=== PATIENT | female | born 1940 | race Caucasian/White ===

== ENCOUNTER → 2016-07-03 | Day surgery (SDC) | payer OTHER ==
[2016-06-04 11:15] VITALS: Ht 161.9 cm; Wt 62.7 kg
[~2016-07-03] VITALS: Ht 161.9 cm; Wt 62.7 kg
[~2016-07-03] MED LIST: 500ML BSS 0.3ML EPI 1:1000PF IRRIG ONE; ACETAMINOPHEN 325 MG TAB PO PRN; AMVISC PLUS 0.8ML SYRINGE INT OCU ONE; ASPI-232 PO; AcetaZOLAMIDE 250 MG TAB PO SCH; BETAXOLOL HCL 0.25% OP SUSP PER DROP CHARGE OPR SCH; BRIMONIDINE TART 0.2% OP SOLN PER DROP CHARGE ONE; BSS FLUSH ONE; CALC-310 PO; CALC-354 PO; ENDOCOAT 0.85ML SYRINGE INT OCU ONE; EpINEphrine INJ 1MG/ML AMP 1 MG/ML AMP ONE; HYDR25TA4 PO; LACTATED RINGER'S 1000ML 500 ML IV SCH; LEVO88TA3 PO; LIDOCAINE 4% OP SOLN DROP CHARGE ONE; LIDOCAINE 4% OP SOLN DROP CHARGE OPR SCH; LIDOCAINE HCL 1% MPF 2 ML VIAL ONE; LISI-729 PO; MIDAZOLAM HCL 1 MG/ML 2ML VIAL ONE; MIX: 4ML BSS 1ML EPI 1:1000 PF INSTIL ONE; MOXIFLOXACIN OPH SOLN PER DROP CHARGE ONE; MULT-506 PO; OCUCOAT 1 ML SOLN IO ONE; PHEN200C PO; PHEN300C PO; POTA20TA16 PO; POVIDONE-IODINE OP SOLN 30 ML BTL ONE; PRMVC TOP; PROPARACAINE 0.5% OP SOLN PER DROP CHARGE OPR SCH; TOBRAMYCIN/DEXAMETHASONE OPH OINT PER APPLN CHARGE ONE
--- NOTE | 2016-07-03 10:06 | History & Physical Bridge - [place] ---
H&P Re-Evaluation Bridge Note: I have examined the patient, reviewed the History & Physical and in the interval since the performance of the History & Physical I have noted the following changes of clinical significance: No changes noted
[2016-07-03] MEDS: PHENYLEPHRINE HCL 2.5% OP SOLN PER DROP CHARGE OPR SCH ×2 (11:23→11:28)
[2016-07-03] MEDS: TROPICAMIDE 1% OP SOLN PER DROP CHARGE OPR SCH ×2 (11:24→11:29)
[2016-07-03] MEDS: CYCLOPENTOLATE HCL 1% OP SOLN PER DROP CHARGE OPR SCH ×2 (11:25→11:30)
[2016-07-03] MEDS: MOXIFLOXACIN OPH SOLN PER DROP CHARGE OPR SCH ×2 (11:26→11:36)
--- NOTE | 2016-07-03 12:02 | Discharge Instructions-SurgCtr ---
Discharge Instructions Date of Service Jul 03, 2016. Visit Reason for Visit: Cataract Right Eye Discharge Discharge Diagnosis / Problem: lens implant right eye Discharge Goals Goal(s): Improve function Activity Recommendations Activity Limitations: resume your previous activity Lifting Limitations: no more than 10 pounds Exercise/Sports Limitations: gradually increase as tolerated May Resume Sexual Activity: when tolerated Shower/Bathe: tomorrow Driving or Machine Use: resume 1 day after discharge Anesthesia . Post Anesthesia Instructions: If you have had General Anesthesia or IV Sedation: * Do not drive today. * Resume driving when surgeon permits. * Do not make important decisions or sign legal documents today. * Call surgeon for: 1. Temperature elevations greater than 101 degrees F. 2. Uncontrollable pain. 3. Excessive bleeding. 4. Persistent nausea and vomiting. 5. Medication intolerance (nausea, vomiting or rash). * For nausea and vomiting use only clear liquids such as: tea, soda, bouillon until nausea subsides, then gradually increase diet as tolerated. * If you have any concerns or questions, call your surgeon's office. If physician is unavailable and it is an emergency, call 911 or go to the nearest emergency room. . Instructions / Follow-Up Instructions / Follow-Up ACTIVITY RECOMMENDATIONS: * Light activities. * Mild irritation and blurred vision are common for the first few days. * You may walk outside, read, watch television. * Redness around the white part of the eye is common. MEDICATIONS: Resume previous medications unless instructed otherwise by your surgeon. * Take white Diamox (Acetazolamide) tablet at 3 pm today. Start all eye drops at 3 pm today: * Eye drops (today and tomorrow): Prednisone - one drop in operative eye every 3 hours while awake Tobramycin - one drop in operative eye every 3 hours while awake SPECIAL CARE INSTRUCTIONS: * Tape plastic shield over eye to sleep at night. Call your doctor at with any concerns or problems. FOLLOW UP VISIT: Follow-up with Dr Gr at [facility] as scheduled. Diet Recommendations Home Diet: no limitations Procedures Procedures Performed: cataract extraction with lens implant Pending Studies Studies pending at discharge: no Medical Emergencies . Who to Call and When: Medical Emergencies: If at any time you feel your situation is an emergency, please call 911 immediately. . Non-Emergent Contact Non-Emergency issues call your: Dry Lumber Grader Call Non-Emergent contact if: your pain is not controlled [phone] . . "Provider Documentation" section prepared by Andrew Gr. .
--- NOTE | 2016-07-03 12:04 | [facility] Operative Report ---
Operative Report Date of Service Jul 03, 2016. Operative Report 1. PREOPERATIVE DIAGNOSIS: Senile Posterior Subcapsular cataract, right eye. 2. POSTOPERATIVE DIAGNOSIS: Senile Posterior Subcapsular cataract, right eye. 3. PROCEDURE: Phacoemulsification of right cataract with posterior chamber lens implant, type Bausch & Lomb, model MI60L, power +19.0 diopters. ANESTHESIA: Local standby. SURGEON: Dr. Gr. COMPLICATIONS: None. OPERATING TIME: 10 minutes. 4. OPERATION AND FINDINGS: DESCRIPTION OF PROCEDURE: The right pupil was dilated. The anesthetic was administered using a topical technique. The right eye was prepped and draped. A speculum was placed. A clear corneal incision was formed. The chamber was filled with Amvisc Plus and Endocoat. Epinephrine solution was used. A paracentesis was placed. A capsulorrhexis was performed. The nucleus was hydrodissected. The lens was removed with phacoemulsification. Time was 2.50 seconds. The aspiration unit was used to remove the cortex. The capsule was filled with Amvisc Plus. The lens implant was folded and placed into the capsule. The incision was hydrated. The Amvisc was aspirated. The wound was secure. The chamber was deep. The pupil was round. TobraDex ointment and Vigamox solution were placed. The speculum was removed. The patient was returned to the Recovery Room in stable condition. I attest to the content of the Intraoperative Record and any orders documented therein. Any exceptions are noted below. The scribe's documentation has been prepared in my presence, under my direction and personally reviewed by me in its entirety. I confirm that the note above accurately reflects all work, treatment, procedures, and medical decision making performed by me. I personally scribed for Andrew Gr M.D. ([email or web address]) on 07/03/16 at 12:04. Electronically submitted by Faith Lezama ([email or web address]).
[2016-07-03 12:07] VITALS: TEMP 36.6
--- NOTE | 2016-07-03 12:20 | Anesthesia Progress Nt - [facility] ---
Anesthesia Post Op Note Date & Time Jul 03, 2016 at 12:19 Vital Signs Pain Intensity: 0 Vital Signs Past 12 Hours Date Time Temp Pulse Resp B/P Pulse Ox O2 Delivery O2 Flow Rate FiO2 07/03/16 12:07 36.6 64 16 153/86 100 Room Air 07/03/16 11:15 36.7 78 16 158/90 98 Room Air Notes Mental Status: alert / awake / arousable, participated in evaluation Pt Amnestic to Procedure: No (recall as expected) Nausea / Vomiting: adequately controlled Pain: adequately controlled Airway Patency, RR, SpO2: stable & adequate BP & HR: stable & adequate Hydration State: stable & adequate Anesthetic Complications: no major complications apparent Pt doing well.
[2016-07-03 12:27] VITALS: BP 139/83; PULSE 71; O2SAT 97
== END | disposition home or self-care (01) ==
LOC: X.SURG 11:06
PROVIDERS: ATTEND Specialist
DX: H26.8 Other specified cataract (principal); Z68.24 Body mass index [BMI] 24.0-24.9, adult; Z98.890 Other specified postprocedural states

== ENCOUNTER → 2016-09-25 | Day surgery (SDC) | payer OTHER ==
[2016-09-13 14:39] VITALS: Ht 161.9 cm; Wt 62.7 kg
[~2016-09-25] VITALS: Ht 161.9 cm; Wt 62.7 kg
[~2016-09-25] MED LIST changes: +ATROPINE SULFATE 0.1 MG/ML 5ML SYR IV PRN; +BETAXOLOL HCL 0.25% OP SUSP PER DROP CHARGE OPL SCH; -BETAXOLOL HCL 0.25% OP SUSP PER DROP CHARGE OPR SCH; +EpHEDrine SULFATE INJ 50 MG/ML AMP IV PRN; +LIDOCAINE 4% OP SOLN DROP CHARGE OPL SCH; -LIDOCAINE 4% OP SOLN DROP CHARGE OPR SCH; +NURSING VERBAL MED ORDER ONE; +PROPARACAINE 0.5% OP SOLN PER DROP CHARGE OPL SCH; -PROPARACAINE 0.5% OP SOLN PER DROP CHARGE OPR SCH
[2016-09-25] MEDS: PHENYLEPHRINE HCL 2.5% OP SOLN PER DROP CHARGE OPL SCH ×2 (10:31→10:36)
[2016-09-25] MEDS: TROPICAMIDE 1% OP SOLN PER DROP CHARGE OPL SCH ×2 (10:32→10:37)
[2016-09-25] MEDS: CYCLOPENTOLATE HCL 1% OP SOLN PER DROP CHARGE OPL SCH ×2 (10:33→10:38)
[2016-09-25] MEDS: MOXIFLOXACIN OPH SOLN PER DROP CHARGE OPL SCH ×2 (10:34→10:49)
--- NOTE | 2016-09-25 11:43 | Discharge Instructions-SurgCtr ---
Discharge Instructions Date of Service Sep 25, 2016. Visit Reason for Visit: Cataract Left Eye Discharge Discharge Diagnosis / Problem: Pseudophakia left eye Discharge Goals Goal(s): Improve function Activity Recommendations Activity Limitations: per Instructions/Follow-up section Lifting Limitations: no more than 10 pounds Exercise/Sports Limitations: as tolerated May Resume Sexual Activity: when tolerated Shower/Bathe: tomorrow Driving or Machine Use: resume 1 day after discharge As noted Anesthesia . Post Anesthesia Instructions: If you have had General Anesthesia or IV Sedation: * Do not drive today. * Resume driving when surgeon permits. * Do not make important decisions or sign legal documents today. * Call surgeon for: 1. Temperature elevations greater than 101 degrees F. 2. Uncontrollable pain. 3. Excessive bleeding. 4. Persistent nausea and vomiting. 5. Medication intolerance (nausea, vomiting or rash). * For nausea and vomiting use only clear liquids such as: tea, soda, bouillon until nausea subsides, then gradually increase diet as tolerated. * If you have any concerns or questions, call your surgeon's office. If physician is unavailable and it is an emergency, call 911 or go to the nearest emergency room. . Instructions / Follow-Up Instructions / Follow-Up ACTIVITY RECOMMENDATIONS: * Light activities. * Mild irritation and blurred vision are common for the first few days. * You may walk outside, read, watch television. * Redness around the white part of the eye is common. MEDICATIONS: Resume previous medications unless instructed otherwise by your surgeon. * Take white Diamox (Acetazolamide) tablet at 3 pm today. Start all eye drops at 3 pm today: * Eye drops (today and tomorrow): Prednisone - one drop in operative eye every 3 hours while awake Tobramycin - one drop in operative eye every 3 hours while awake SPECIAL CARE INSTRUCTIONS: * Tape plastic shield over eye to sleep at night. Call your doctor at with any concerns or problems. FOLLOW UP VISIT: Follow-up with Dr Gr at [facility] as scheduled. Diet Recommendations Home Diet: resume previous diet Pending Studies Studies pending at discharge: no Medical Emergencies . Who to Call and When: Medical Emergencies: If at any time you feel your situation is an emergency, please call 911 immediately. . Non-Emergent Contact Non-Emergency issues call your: African History Professor . . "Provider Documentation" section prepared by Andrew Gr. .
--- NOTE | 2016-09-25 11:44 | [facility] Post Operative Brief Note ---
Immediate Operative Summary Operative Date Sep 25, 2016. Pre-Operative Diagnosis Cataract Left Eye Post-Operative Diagnosis Same Procedure(s) Performed Left Cataract Phacoemulsification With Intraocular Lens Implant Surgeon Dr. Gr Certified Court/Medical Interpreter Surgeon(s) None Estimated Blood Loss 0 Findings Nuclear cataract Fluids (cc crystalloids) 300 ml Specimens None Drains none Anesthesia L/S Complication(s) None Disposition Recovery Room / PACU
--- NOTE | 2016-09-25 11:45 | [facility] Operative Report ---
Operative Report Date of Service Sep 25, 2016. Operative Report PREOPERATIVE DIAGNOSIS: Senile nuclear cataract left eye. POSTOPERATIVE DIAGNOSIS: Senile nuclear cataract left eye. PROCEDURE: Phacoemulsification of left cataract with posterior chamber lens implant, type Bausch & Lomb, model MI60L, power + 19.00 Diopters. ANESTHESIA: Local standby. SURGEON: Dr. Gr. COMPLICATIONS: None. OPERATING TIME: 8 minutes. OPERATION AND FINDINGS: PROCEDURE: The left pupil was dilated. The anesthetic was administered using a topical technique. The left eye was prepped and draped. A speculum was placed. A clear corneal incision was formed. The chamber was filled with Amvisc Plus and endocoat. A paracentesis was placed. A capsulorrhexis was performed. The nucleus was hydrodissected. The lens was removed with phacoemulsification. Time was 3.26 seconds. The aspiration unit was used to remove the cortex. The capsule was filled with Amvisc Plus. The lens implant was folded and placed into the capsule. The incision was hydrated. The Amvisc was aspirated. The wound was secure. The chamber was deep. The pupil was round. Alphagan solution and TobraDex ointment and Zymar solution were placed. The speculum was removed. DISPOSITION: The patient was returned to the recovery room in stable condition I attest to the content of the Intraoperative Record and any orders documented therein. Any exceptions are noted below.
[2016-09-25 11:46] VITALS: TEMP 36.9
[2016-09-25 12:04] VITALS: BP 154/90; PULSE 65; O2SAT 96
--- NOTE | 2016-09-25 12:09 | Anesthesia Progress Nt - [facility] ---
Anesthesia Post Op Note Date & Time Sep 25, 2016 at 12:08 Vital Signs Pain Intensity: 1 Vital Signs Past 12 Hours Date Time Temp Pulse Resp B/P (MAP) Pulse Ox O2 Delivery O2 Flow Rate FiO2 09/25/16 12:04 65 16 154/90 (111) 96 Room Air 09/25/16 11:46 36.9 65 16 147/84 (105) 96 Room Air 09/25/16 10:22 36.8 69 20 158/95 (116) 97 Room Air Notes Mental Status: alert / awake / arousable, participated in evaluation Pt Amnestic to Procedure: Yes Nausea / Vomiting: adequately controlled Pain: adequately controlled Airway Patency, RR, SpO2: stable & adequate BP & HR: stable & adequate Hydration State: stable & adequate Anesthetic Complications: no major complications apparent
== END | disposition home or self-care (01) ==
LOC: X.SURG 09:06
PROVIDERS: ATTEND Specialist
DX: H25.12 Age-related nuclear cataract, left eye (principal); I10 Essential (primary) hypertension; E03.9 Hypothyroidism, unspecified; E78.5 Hyperlipidemia, unspecified; R56.9 Unspecified convulsions; Z79.82 Long term (current) use of aspirin; Z90.89 Acquired absence of other organs; Z90.710 Acquired absence of both cervix and uterus; Z87.891 Personal history of nicotine dependence

== ENCOUNTER 2018-07-25 11:19 | Inpatient (IN) ==
[2018-07-25 11:51] LABS: Hematocrit (blood only) 44.8 % (37-47); Hemoglobin 16.3 g/dL (12.0-16.0); Mean Corpuscular Hgb Conc 36.4 g/dL (32-36); Mean Corpuscular Volume 93.9 fL (80-100); Platelet Count 255 K/uL (130-400); RDW Standard Deviation 44.9 fL (36.4-46.3); Red Blood Count 4.77 M/uL (4.2-5.4)
[2018-07-25 11:58] LABS: Albumin Level 4.2 gm/dl (3.4-5.0); BUN Creatinine Ratio 21.5 (10-20); Calcium 9.2 mg/dl (8.5-10.1); Creatinine Clr Calc Pharmacy 55.8 ml/min; Est GFR (African American) 85.6; Est GFR (Non-African American) 73.8; Potassium 3.6 mmol/L (3.5-5.1)
--- NOTE | 2018-07-25 11:58 | CT Scan Report ---
HEAD CT NONCONTRAST CT DOSE: 537.48 mGy.cm HISTORY: Slurred speech. stroke symptoms TECHNIQUE: Multiaxial CT images of the head were performed without the use of intravenous contrast. A utomated exposure control was utilized for this study. A dose lowering technique was utilized adheri ng to the principles of ALARA. Comparison: Head CT 04/29/2006. Findings: The paranasal sinuses and mastoid air cells are clear. The calvarium and skull base are int act. There is no mass, hematoma, midline shift, acute infarct. White matter hypodensity is nonspecifi c but suggestive of microvascular ischemic change. The ventricles and sulci demonstrate mild age-rela venecia involutional changes. 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 Impression: No acute intracranial abnormality. Atrophy and microvascular ischemic changes. Old small lacunar infa rcts within the right cerebellar hemisphere. Electronically signed by: Liam Mayer M.D. 07/25/2018 11:57 AM
[2018-07-25 12:01] LABS: Albumin Globulin Ratio 1.2 (0.9-2); Bilirubin,Total 0.3 mg/dl (0.2-1); Globulin 3.6 gm/dl (2.5-4.0); Total Protein 7.8 gm/dl (6.4-8.2)
[2018-07-25] MEDS ORDERED: LABETALOL HCL IV 5 MG/ML 20ML IV STA ×2 (12:02→13:20)
[2018-07-25 12:14] LABS: Partial Thromboplastin Time 26.5 Seconds (21.0-31.0); Prothrombin Time 10.5 Seconds (9.0-12.0)
[2018-07-25] MEDS ORDERED: ICU PROTOCOL FOR HYPERGLYCEMIA PRN (13:17)
[2018-07-25] MEDS ORDERED: PHARMACIST DISCHARGE MED REC CONSULT PRN (13:20)
--- NOTE | 2018-07-25 13:39 | XRay Report ---
XR chest 1V portable HISTORY: Stroke symptoms. COMPARISON: None. FINDINGS: The lungs are clear. Cardiac silhouette is normal in size. No pleural effusions. No pneumot horax. IMPRESSION: No acute process. Electronically signed by: Liam Mayer M.D. 07/25/2018 1:37 PM
--- NOTE | 2018-07-25 13:40 | History & Physical Report ---
Date of Service July 25, 2018 Assessment & Plan (1) Dysarthria: (2) Hypertensive emergency: This is a 78-year-old female who has a significant past medical history of HTN, hypothyroidism, seizure disorder, senile osteoporosis who presents to [facility] secondary to dysarthria that began at approximately 8 AM. In ED symptoms mostly resolved except she did exhibit mild/minimal dysarthria, her neuro exam was otherwise unremarkable. Patient was significantly hypertensive with BP 225/136 on arrival and upon my examination was 228/126. She did receive labetalol 10 mg IV with improvement to 186/94 but then rebounded. Her lab work was significant for sodium 135, BUN 17, creatinine 0.78, glucose 104, total cholesterol 234, triglyceride 254, LDL 103, HDL 80. Head CT was negative for hemorrhage but did reveal old small lacunar infarcts in right cerebellar hemisphere. Chest x-ray was unremarkable. Patient likely experiencing hypertensive emergency therefore will be admitted to ICU. There is concern for questionable CVA given dysarthria/history and patient will undergo work-up to rule out stroke Admit to ICU Patient to be placed on Cardene drip for blood pressure management per neurology Consult neurology Obtain MRI of brain without contrast Obtain CTA of head and neck Obtain echocardiogram Fasting lipid panel already obtained Obtain A1c Please defer to security test engineer consultation for further treatment plan (3) Hypercholesteremia: Total cholesterol elevated at 234, trig 254, LDL 103, HDL 80 Will initiate patient on Lipitor 10 mg at bedtime until CVA work-up complete (4) Hypothyroidism: Continue Synthroid Check TSH (5) Seizure disorder: Continue Dilantin, last known seizure was 1983 (6) Senile osteoporosis: Continue Fosamax as outpatient (7) DVT prophylaxis: SCDS Disposition: to be determined, case management consulted Follow up: PCP Dr. Page upon discharge Patient was seen and examined in collaboration with Dr. De La Garza, please see addendum History of Present Illness Chief Complaint: Dysarthria since 8AM. Primary Care Provider: Cari Page MD This is a 78-year-old female who has a significant past medical history of HTN, hypothyroidism, seizure disorder, senile osteoporosis who presents to [facility] secondary to dysarthria that began at approximately 8 AM. Patient states she was going to her car repair appointment. At approximately 8 AM whenever she was talking to repair garage team she felt like she was having difficulty talking, "my tongue was in the way," she could not pronounce words. She could get words out but was having difficulty articulating them. She left the garage at approximately 8:30 AM and went home to rest. She decided to go to the bathroom and whenever she looked in the mirror she felt like she was experiencing slight left facial droop, "it is like my smile was not equal." She googled symptoms and she was concerned for stroke therefore she proceeded to seek ED. When getting in car she saw her neighbor and explained her symptoms. Her neighbor also felt that she was having difficulty articulating words. She has never had anything like this in the past. She denies any recent illness. She denies fever, chills, sweats, lightheadedness, dizziness, syncope, chest pain, shortness of breath, palpitations, cough, hemoptysis, nausea, vomiting, diarrhea, change in her bowel or urinary habits. Her appetite and weight has been stable. Patient states she monitors her blood pressure periodically. 2 da ys ago she was at a health screening in which her systolic blood pressure was 150s. About a week prior to that she was seen at her PCPs office and her systolic blood pressure was 118. She takes her medications regularly and took her hydrochlorothiazide this morning. 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 Events occurred in 1980 and 1983. She initially was treated with Dilantin and weaned off and developed additional episode of grand mal seizure in . She has then been on Dilantin ever since. Allergies Allergy/AdvReac Type Severity Reaction Status Date / Time cephalexin Allergy Severe RASH Verified 07/25/18 11:46 SWELLING OF EYE LIDS Penicillins Allergy Severe HIVES Verified 07/25/18 11:46 Home Medications Home Medications Medication Instructions Recorded Confirmed Type alendronate 70 mg PO WK 07/25/18 07/25/18 History aspirin [Aspirin Low Dose] 81 mg PO QPM 07/25/18 07/25/18 History calcium carbonate-vitamin D3 1 tab PO BID 07/25/18 07/25/18 History [Caltrate 600 + D] hydrochlorothiazide 25 mg PO QAM 07/25/18 07/25/18 History levothyroxine 88 mcg PO QAM 07/25/18 07/25/18 History lisinopril 5 mg PO HS 07/25/18 07/25/18 History multivitamin 1 tab PO DAILY 07/25/18 07/25/18 History phenytoin sodium extended 200 mg PO Q OTHER DAY 07/25/18 07/25/18 History phenytoin sodium extended 300 mg PO Q OTHER DAY 07/25/18 07/25/18 History [Dilantin Extended] potassium chloride [Klor-Con M20] 20 meq PO DAILY 07/25/18 07/25/18 History Past Med/Surg History Medical History HTN (hypertension) (Chronic) Hypothyroidism (Chronic) Senile osteoporosis (Chronic) Seizure disorder (Chronic) HTN (hypertension) (Chronic) Surgical History History of colonoscopy (Chronic) History of tonsillectomy and adenoidectomy (Chronic) History of total vaginal hysterectomy (Chronic) History of bladder repair surgery (Chronic) Family History Mother , 88 Stroke Father , 30s Accident at workplace, Onset Age: 30 [employer] Social History Preferred Language: Gabonese Communication Ability: Effective Beliefs That Will Affect Care: None marital status: / Current Living Situation: Alone current occupational status: retired Feels Safe at Home: Yes Smoking Status: Former smoker Hx Alcohol Use: Yes Hx Substance Use: No Review of Systems Review of Systems: As noted per HPI, 10 systems reviewed and negative unless noted above. Physical Exam Physical Exam: Gen: WD/WN, F, NAD, sitting up in bed, pleasant, conversing easily Head: Normocephalic, Atraumatic Eyes: Sclera normal, no conjunctival injection, PERRLA, EOMI, horizontal nystagmus noted bilaterally ENT: Gross hearing intact, normal pharynx, mucous membranes moist Neck: supple, no adenopathy, No JVD, no bruit, Resp: Clear to auscultation b/l, no wheeze, rales, rhonchi. Normal insp/exp effort, no accessory muscle use CV: Regular rate, regular rhythm, no murmur, rub, gallop, or ectopy Abd: +BS x 4, soft, nontender, nondistended Musculoskeletal: moves extremities active rom x 4, strength intact, good coding advisor strength Extremities: No edema bilaterally Skin: warm, moist, no rash, negative turgor, cap refill < 2sec Neuro: Alert and oriented x 3, speech normal minimal dysarthria, good mood/affect, cran nerve 2-12 intact grossly, [id number] intact, negative pronator drift, [id number] intact : deferred Results & Data Vital Signs (Past 12 Hours) Vital Signs Temp Pulse Pulse Resp BP BP Pulse Ox 07/25/18 13:34 74 16 228/126 H 07/25/18 12:30 72 21 99 07/25/18 12:15 77 21 183/103 H 97 07/25/18 12:13 79 13 96 07/25/18 12:12 79 12 186/94 H 96 07/25/18 12:01 86 15 98 07/25/18 12:00 91 H 19 226/118 H 97 07/25/18 11:54 90 26 H 231/144 H 07/25/18 11:40 94 H 22 227/157 H 07/25/18 11:37 94 H 23 98 07/25/18 11:35 95 H 16 237/145 H 99 07/25/18 11:22 36.5 C 109 H 18 225/136 H 99 Laboratory Results Short CBC 07/25/18 Range/Units 11:33 WBC 7.00 (4.8-10.8) K/uL Hgb 16.3 H (12.0-16.0) g/dL Hct 44.8 (37-47) % Plt Count 255 (130-400) K/uL BMP 07/25/18 11:33 Sodium 135 L Potassium 3.6 Chloride 100 Carbon Dioxide 29 BUN 17 Creatinine 0.78 Glucose 104 H Calcium 9.2 Liver Function 07/25/18 Range/Units 11:33 Total Bilirubin 0.3 (0.2-1) mg/dl AST 27 (15-37) U/L ALT 40 (12-78) U/L Alkaline Phosphatase 138 H (45-117) U/L Albumin 4.2 (3.4-5.0) gm/dl Diagnostic Findings CT Head: Impression: No acute intracranial abnormality. Atrophy and microvascular ischemic changes. 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 CXR: IMPRESSION: No acute process. Medications Administered Discontinued Medications Labetalol HCl (Normodyne) 10 mg IV NOW STA Stop: 07/25/18 12:03 Last Admin: 07/25/18 12:07 Dose: 10 mg Documented by: [id number] Cosigned by: [id number] Labetalol HCl (Normodyne) 10 mg IV NOW STA Stop: 07/25/18 13:21 Last Admin: 07/25/18 13:33 Dose: 10 mg Documented by: [id number] Cosigned by: [id number] ECG Rate (beats per minute): 96 Rhythm: normal sinus Code Status & VTE Plan Code Status Full code VTE Prophylaxis Plan VTE Prophylaxis will be ordered: Yes Supervising Physician Co-Signing Physician Notes I have seen and examined the patient with physician retail assistant manager and would like to comment in addition that Patient was in usual state of health up until 8 AM of 07/25/18 when she started speaking and noted problems with her speech and felt there might have be changes to her facial muscles. Patient presented to the ED and initial blood pressure recorded at 11:22 AM of blood pressure 225/136. Because of symptoms this would appear that patient had hypertensive emergency During the ED evaluation of the dysarthria and high blood pressure, patient did receive labetalol 20 mg IV which subsequently did bring down the blood pressure to systolic of 180s as documented at 12:12 PM. During that time patient had CT head which did not show intracranial bleed. ED order to admit was placed at 12:38PM. When Hospitalist medicine was asked to evaluate the patient, patient certainly was outside of the window for TPA which is recommended as per guidelines of 3 to 4.5 hours if suspected of stroke-like symptoms Hospitalist medicine service also noted that blood pressure returned to around systolic 225 and diastolic of 115. While patient seemed to have normal speech and no acute motor or sensory deficits (questionable whether there is new onset asymmetric facial muscles compared to patient's baseline prior to 8AM of 07/25/18), the Intensive care unit physician Dr. Felder was asked to accept the patient for further monitoring of the hypertensive emergency and rule out stroke workup. An addition labelol 20 mg IV was ordered. Hospitalist medicine team spoke with Neurology Dr. Dukes who recommended that patient should be started on nicardepine drip and try to titrate systolic blood pressure to between 160 to 180. Patient will be evaluated in the ICU and then have imaging studies neck and head CTA and brain MRI. Echocardiogram also to be pending. Patient does not appear to have seizure at this time but noted as per medical history to have had 2 seizures in the 1980s and patient has been taking phenytoin regularly. Likely patient should have phenytoin levels checked on this admission. Full Code status agree with physician retail assistant manager for other medical issues as documented, will appreciate further intensive care physician and neurology physician recommendations in furthering management of patient's care.
[2018-07-25 13:47] LABS: Chol HDL Ratio 3; Cholesterol 234 mg/dl (0-200); HDL Cholesterol 80 mg/dl; LDL Cholesterol Calculated 103 mg/dl; Triglycerides 254 mg/dl (0-150); VLDL Cholesterol 51 mg/dl
--- NOTE | 2018-07-25 13:57 | Neurology Consultation ---
Date of Consultation July 25, 2018 History of Present Illness Reason for Consultation: Dysarthria, Left Facial Droop Requesting Physician: Dr. Eyal De La Garza Attending Physician: Dr. Eyal De La Garza Assessment/plan: Transient left facial droop Dysarthria Hypertension Hx of Seizure A 78 year old woman with transient left facial droop and dysarthria secondary to left centrum semiovale ischemic lacunar infarct. Etiology likely small vessel due to chronic HTN. CTA head and neck negative for large vessel oclussion or high grade stenosis. MRI brain shows acute lacunar infract. NIHSS 0. - Recommend starting ASA 81 mg daily and Plavix 75 mg for 21-days, then ASA 81 mg daily indefintely - Recommend HIgh intensity statin, Liptior 40 mg daily - Recommend checking HA1c and Lipid panel - Permissive HTN for 24-hours with gradual reduction in blood pressures - TTE with shunt - Continue telemetry - Neuro checks, VS per ICU protocol - PT/OT/SS History of Present Illness A 78 year old woman admitted today for intermittent dysarthria and transient left facial droop. Patient was noted to have elevated blood pressures in the ED with systolic blood pressures greater than 220 mm Hg She has a history of hypertension and history of seizures currently on Dilantin. Last seizure was reported to be in 1983. Patient's blood pressures remain labile and patient was transferred to the intensive care nicardipine drip. Neurology was consulted due to concern for stroke. Remote history of smoking. She is on blood pressures medications at home. Does not take ASA regularly. Saw her left face drooping earlier. Now back to baseline. Allergies Allergy/AdvReac Type Severity Reaction Status Date / Time cephalexin Allergy Severe RASH Verified 07/25/18 11:46 SWELLING OF EYE LIDS Penicillins Allergy Severe HIVES Verified 07/25/18 11:46 Home Medications Home Medications Medication Instructions Recorded Confirmed Type alendronate 70 mg PO WK 07/25/18 07/25/18 History aspirin [Aspirin Low Dose] 81 mg PO QPM 07/25/18 07/25/18 History calcium carbonate-vitamin D3 1 tab PO BID 07/25/18 07/25/18 History [Caltrate 600 + D] hydrochlorothiazide 25 mg PO QAM 07/25/18 07/25/18 History levothyroxine 88 mcg PO QAM 07/25/18 07/25/18 History lisinopril 5 mg PO HS 07/25/18 07/25/18 History multivitamin 1 tab PO DAILY 07/25/18 07/25/18 History phenytoin sodium extended 200 mg PO Q OTHER DAY 07/25/18 07/25/18 History phenytoin sodium extended 300 mg PO Q OTHER DAY 07/25/18 07/25/18 History [Dilantin Extended] potassium chloride [Klor-Con M20] 20 meq PO DAILY 07/25/18 07/25/18 History Patient History Medical History HTN (hypertension) (Chronic) Hypothyroidism (Chronic) Senile osteoporosis (Chronic) Seizure disorder (Chronic) HTN (hypertension) (Chronic) Surgical History History of colonoscopy (Chronic) History of tonsillectomy and adenoidectomy (Chronic) History of total vaginal hysterectomy (Chronic) History of bladder repair surgery (Chronic) Family History Mother , 88 Stroke Father , 30s Accident at workplace, Onset Age: 30 [employer] Social History Preferred Language: Latvian Communication Ability: Effective Assembly Line Inspector Required: No Beliefs That Will Affect Care: None marital status: / Current Living Situation: Alone current occupational status: retired Other Information That Helps Us Care for You: No Feels Safe at Home: Yes Safety Concerns: Feels Safe At This Time Smoking Status: Former smoker Smoking End Date: 1969 Second Hand Exposure: Yes (not since 1969) Hx Alcohol Use: Yes Alcohol type: wine Hx Substance Use: No Physical Exam Physical Exam: EXAM: Constitutional: appearance normally developed, well nourished and non-obese Head and Face: normocephalic and atraumatic Eyes: normal lids, normal conjunctiva Neck: supple Respiratory: normal effort Cardiovascular: normal pulses Abdomen: non distended Skin: no rashes, lesions, or ulcers noted Psychiatric: normal judgement and insight, normal mood and normal affect NEUROLOGIC EXAMINATION: Appearance: no acute distress Orientation: awake, alert and oriented x 3 Mental Status: alert Memory: registration 3/3 and recall 3/3 Attention: normal Knowledge: appropriate Language: no aphasia Speech: no dysarthria Cranial Nerves: CN 2 - no visual defect on confrontation and pupils round, equal, reactive to light CN 3, 4, 6 - extra-ocular movements intact and no nystagmus CN 5 - facial sensation intact CN 7 - no facial asymmetry CN 8 - intact hearing CN 9, 10 - palate symmetric CN 11 - good shoulder shrug CN 12 - tongue midline Gait: deferred Coordination: no ataxia with finger to nose testing Sensory: intact and symmetric to light touch, no extinction Muscle Tone: normal Muscle exam: 5/5 througout, no drift in upper or lower extremities Reflexes: No clonus, toes down going Results & Data Vital Signs (Past 12 Hours) Vital Signs Temp Pulse Pulse Resp BP BP Pulse Ox 07/25/18 13:45 8 L 16 219/124 H 07/25/18 13:34 74 16 228/126 H 07/25/18 12:30 72 21 99 07/25/18 12:15 77 21 183/103 H 97 07/25/18 12:13 79 13 96 07/25/18 12:12 79 12 186/94 H 96 07/25/18 12:01 86 15 98 07/25/18 12:00 91 H 19 226/118 H 97 07/25/18 11:54 90 26 H 231/144 H 07/25/18 11:40 94 H 22 227/157 H 07/25/18 11:37 94 H 23 98 07/25/18 11:35 95 H 16 237/145 H 99 07/25/18 11:22 36.5 C 109 H 18 225/136 H 99
[2018-07-25 14:23] LABS: Troponin I < 0.015 ng/ml (0-0.045)
[2018-07-25 14:43] LABS: Estimated Average Glucose 105 mg/dl; Hemoglobin A1C 5.3 % (4.5-5.6)
--- NOTE | 2018-07-25 14:56 | Critical Care Consultation ---
Date of Consultation July 25, 2018 Assessment & Plan (1) Hypertensive emergency: Impression: 1. Hypertensive crisis, with neurologic symptoms, resolved neurologic symptoms with improvement in her blood pressure. 2. Hypercholesterolemia, with elevated cholesterol and triglycerides. 3. History of seizure disorder has been maintained on DPH. 4. History of hypothyroidism. Plan: 1. Blood pressure control to keep systolic blood pressure between 1 40-1 80. 2. I will start the patient on Lopressor given her multiple risk factors for vascular event. 25 mg p.o. twice daily. 3. Continue lisinopril and increase the dose from 5mg to 20 mg daily and will increase it as needed. 4. Aspirin 325 mg p.o. today and then 81 mg daily. 5. Continue Dilantin and levothyroxine. 6. DVT prophylaxis. 7. Neuro check every 4 hours. 8. Monitor in ICU. 9. Titrate nicardipine down to off. 10. Check a.m. labs. 12. Discussed with neurology Dr. Cantu, and with Dr. De La Garza, appreciate input. Discussed with the staff on rounds in details. Critical care time spent with the patient was 35 minutes. History of Present Illness Reason for Consultation: Hypertensive crisis Requesting Physician: Dr. De La Garza Attending Physician: Eyal De La Garza MD History of Present Illness Dear Dr. De La Garza: Thank you for the kind referral Mrs. Lema to critical care service. This is 78-year-old female with history of hypertension, seizure disorder, hypothyroidism, hypercholesterolemia, has been in her usual status of health, she has not had hospitalization since 2002, presented to the hospital after she noted slurred speech accompanied also with facial droop on the right side. The patient presented to the ED with blood pressure systolic of 220, the patient was given a dose of labetalol I brought it down to 185. The patient at that time was still having slurred speech, the patient underwent a CAT scan of the head which was unremarkable, admitted to the ICU with hypertensive crisis. The patient was out of the window for administering thrombolytics however her symptoms also resolved which exclude her from aggressive treatment for CVA. In the ICU, the patient was totally asymptomatic, denies any slurred speech, no focal weakness, no facial droop, no abnormal sensation, no paresthesia, no dizziness or diplopia, denies any dysphagia, dysarthria, and there is no dysphonia either. No focal weakness, the patient did not have focal symptoms whatsoever. She denies any headache, no hearing loss, no abnormal sensation in her mouth, no shortness of breath and no chest pain, no epigastric pain no abdominal pain no change in bowel movements or urine habits, no recent travel, and no recent illness. Family history does not contribute to her current illness, the patient is ex- smoker but quit in 1975, she smoked only for 2 years. She has secondhand smoking exposure via her but was unremarkable. Allergies Allergy/AdvReac Type Severity Reaction Status Date / Time cephalexin Allergy Severe RASH Verified 07/25/18 11:46 SWELLING OF EYE LIDS Penicillins Allergy Severe HIVES Verified 07/25/18 11:46 Home Medications Home Medications Medication Instructions Recorded Confirmed Type alendronate 70 mg PO WK 07/25/18 07/25/18 History aspirin [Aspirin Low Dose] 81 mg PO QPM 07/25/18 07/25/18 History calcium carbonate-vitamin D3 1 tab PO BID 07/25/18 07/25/18 History [Caltrate 600 + D] hydrochlorothiazide 25 mg PO QAM 07/25/18 07/25/18 History levothyroxine 88 mcg PO QAM 07/25/18 07/25/18 History lisinopril 5 mg PO HS 07/25/18 07/25/18 History multivitamin 1 tab PO DAILY 07/25/18 07/25/18 History phenytoin sodium extended 200 mg PO Q OTHER DAY 07/25/18 07/25/18 History phenytoin sodium extended 300 mg PO Q OTHER DAY 07/25/18 07/25/18 History [Dilantin Extended] potassium chloride [Klor-Con M20] 20 meq PO DAILY 07/25/18 07/25/18 History Patient History Medical History HTN (hypertension) (Chronic) Hypothyroidism (Chronic) Senile osteoporosis (Chronic) Seizure disorder (Chronic) HTN (hypertension) (Chronic) Surgical History History of colonoscopy (Chronic) History of tonsillectomy and adenoidectomy (Chronic) History of total vaginal hysterectomy (Chronic) History of bladder repair surgery (Chronic) Family History Mother , 88 Stroke Father , 30s Accident at workplace, Onset Age: 30 [address] mines Social History Preferred Language: Congolese Communication Ability: Effective Beliefs That Will Affect Care: None marital status: / Current Living Situation: Alone current occupational status: retired Feels Safe at Home: Yes Smoking Status: Former smoker Hx Alcohol Use: Yes Hx Substance Use: No Review of Systems Review of Systems: Review of system otherwise was unremarkable. Apart from was mentioned in the first section. Physical Exam Physical Exam: Vital signs were noted for blood pressure of 219/124, her heart rate is 92 normal sinus rhythm, no stridor, S1-S2 regular rate and rhythm, clear lung field, no edema in the periphery, neuro exam revealed 2-12 cranial nerves are intact, no focal weakness in the upper and lower extremities, no sensation loss, did not test for her gait. No slurred speech noted. Results & Data Vital Signs (Past 12 Hours) Vital Signs Temp Pulse Pulse Resp BP BP Pulse Ox 07/25/18 13:45 8 L 16 219/124 H 07/25/18 13:34 74 16 228/126 H 07/25/18 12:30 72 21 99 07/25/18 12:15 77 21 183/103 H 97 07/25/18 12:13 79 13 96 07/25/18 12:12 79 12 186/94 H 96 07/25/18 12:01 86 15 98 07/25/18 12:00 91 H 19 226/118 H 97 07/25/18 11:54 90 26 H 231/144 H 07/25/18 11:40 94 H 22 227/157 H 07/25/18 11:37 94 H 23 98 07/25/18 11:35 95 H 16 237/145 H 99 07/25/18 11:22 36.5 C 109 H 18 225/136 H 99 Laboratory Results Normal CBC, normal BMP, BUN/creatinine are normal, troponin is negative, high cholesterol and triglycerides were noted. Diagnostic Findings Showed old small lacunar infarct in the right cerebellar area. Otherwise age- related atrophy. Chest x-ray without any process.
[2018-07-25] MEDS ORDERED: ASPIRIN CHEW 324 MG PO STA (15:12)
[2018-07-25] MEDS ORDERED: LISINOPRIL 20 MG TAB PO SCH (15:15)
[2018-07-25] MEDS: METOPROLOL TARTRATE 25 MG TAB PO SCH (15:35)
--- NOTE | 2018-07-25 16:31 | Magnetic Resonance Report ---
MRI OF THE BRAIN WITHOUT CONTRAST CLINICAL HISTORY: Slurred speech. Evaluate for stroke. COMPARISON STUDY: Head CT July 25, 2018. TECHNIQUE: Utilizing a 1.5 Sarita magnet and dedicated coil, multiplanar, multiecho imaging of the bra in was performed without IV contrast. FINDINGS: Note is made of a 9 mm T2 hyperintense focus within the left centrum semiovale ovale which demonstrates restricted diffusion. This represents an acute infarct. No additional acute infarcts are present. Ventricular system is unremarkable. The basilar cisterns are patent. There are no extra-axi al collections. There are old lacunar infarcts within the bilateral cerebellar hemispheres. No intrac ranial masses identified on this unenhanced exam. A right maxillary sinus mucous retention cyst is no venecia. Calvarial signal is normal. Orbits are unremarkable. There is no fluid within the mastoid air ce lls. No evidence for acute sinusitis. Numerous white matter T2 hyperintense foci suggest small vessel disease. IMPRESSION: 1. Small acute infarct (9 mm) within the left centrum semiovale. No mass effect. No hemorrhage. 2. Multiple old lacunar infarcts and moderate small vessel disease. Electronically signed by: Pasha Armstrong M.D. 07/25/2018 4:30 PM
[2018-07-25] MEDS ORDERED: OPTIRAY 320 125ml IV PRN (16:32)
--- NOTE | 2018-07-25 16:43 | CT Scan Report ---
CTA ANGIOGRAPHY OF THE HEAD CLINICAL HISTORY: Slurred speech. Cerebrovascular accident. COMPARISON STUDY: Head CT and MRI of the brain performed earlier today. TECHNIQUE: Helical axial images of the head were obtained following uneventful intravenous administr ation of 121 cc of Optiray 320. Automated exposure control was utilized for the study. A dose lower ing technique was utilized adhering to the principles of ALARA. CT DOSE: 486.33 mGy.cm FINDINGS: Please note that the neck CTA will be reported separately. A mucous retention cyst within t he right maxillary sinus is incidentally noted. No acute intracranial hemorrhage, midline shift or ma ss effect is present. Brain volume is unremarkable. The ventricular system is normal. The basilar cis terns are patent. There are no extra-axial collections. Old lacunar infarcts within the bilateral cer ebellar hemispheres are better depicted on the MRI of the brain. The small acute infarct within the l eft centrum semiovale ovale on MRI the brain is shown on this exam due to technique. The bilateral M1 , M2, A1 and A2 segments are patent. There is mild plaque within bilateral cavernous carotids without stenosis. The posterior circulation is intact. There is no dissection. There is no intracranial aneu rysm. No abrupt vessel cut off is identified. IMPRESSION: Unremarkable CTA of the head. Mild atherosclerotic plaque within the bilateral cavernous carotids. No stenosis, thrombus, aneurysm or abrupt vessel cut off. Electronically signed by: Pasha Armstrong M.D. 07/25/2018 4:41 PM
--- NOTE | 2018-07-25 16:45 | CT Scan Report ---
CT ANGIOGRAPHY OF THE NECK WITH CONTRAST CLINICAL HISTORY: Slurred speech. Stroke. COMPARISON STUDY: No previous studies for comparison. Technique: CT angiography of the carotid and vertebral arteries was obtained using [employer] 320 IV and 3D reconstruction on an independent workstation. NASCET criteria was utilized. Automated exposure c ontrol was utilized for the study. A dose lowering technique was utilized adhering to the principles of ALARA. Findings: Lung apices are clear with the exception of mild biapical scarring. There is no cervical ly mphadenopathy. No mucosal lesion is identified although these may be occult by CT. There is no cervic al spine fracture. The major vasculature of the neck, including the bilateral common carotid, cervica l internal carotid and vertebral arteries are patent. There is mild atherosclerotic plaque within the proximal bilateral internal carotid arteries without stenosis. The left vertebral artery is dominant . There is no dissection. There is no aneurysm within the major vessels of the neck. IMPRESSION: Mild atherosclerotic plaque within the proximal bilateral internal carotid arteries without stenosis. No dissection. Unremarkable CTA of the neck for age. Electronically signed by: Pasha Armstrong M.D. 07/25/2018 4:43 PM
--- NOTE | 2018-07-25 17:04 | Emergency Department Note ---
Entered by Beverly Brantley acting as a scribe for Donald Araiza MD History of Present Illness General Chief complaint: Stroke/CVA Symptoms Stated complaint: SLURRED SPEECH, CAN'T WRITE WELL Source: patient and other (nursing staff) History of Present Illness Provider complaint: 1000 this morning Location: mouth Maximum Pain Intensity: 2 Quality: + other (stroke-like symptoms) Associated symptoms: + denies other symptoms (denies abdominal pain); no chest pain, no fever/chills and no shortness of breath The patient is a 78 year old female who presents to the Emergency Department with complaints of stroke symptoms occurring around 1000 this morning. She states that she had trouble talking while she was at the car shop and states that she feels like her tongue is "getting in the way." The patient states that she cannot pronounce things as clearly as usual. The patient states that she woke up at 0530 and did not notice any symptoms but she was not talking to anyone. She states she might of had the symptoms at that time but she would not of known. She denies having numbness or weakness on one side of the body. She states that she smiled in the mirror and reports that the left side of her face felt stronger. She denies having trouble ambulating. The patient does report having pressure in her head like a "tight band." The patient states that she did take her blood pressure medication this morning. She denies having fevers, chest pain, shortness of breath, and abdominal pain. The patient denies a history of strokes. The patient states that she takes 81 mg of Aspirin twice per week but is not on blood thinners. She states that she last had the baby aspirin 2 days ago. Per nursing staff, the patient "felt funny" at 0830. Nursing staff states that the patient drove to a car shop at 1000 and started to notice her symptoms more while talking to someone. Per nursing staff, the patient had trouble getting her words out and also reports having pressure in her head. Nursing staff states that the patient is hypertensive and takes Lisinopril and HCTZ for a history of hypertension. Home Medications Home Medications Medication Instructions Recorded Confirmed Type alendronate 70 mg PO WK 07/25/18 07/25/18 History aspirin [Aspirin Low Dose] 81 mg PO QPM 07/25/18 07/25/18 History calcium carbonate-vitamin D3 1 tab PO BID 07/25/18 07/25/18 History [Caltrate 600 + D] hydrochlorothiazide 25 mg PO QAM 07/25/18 07/25/18 History levothyroxine 88 mcg PO QAM 07/25/18 07/25/18 History lisinopril 5 mg PO HS 07/25/18 07/25/18 History multivitamin 1 tab PO DAILY 07/25/18 07/25/18 History phenytoin sodium extended 200 mg PO Q OTHER DAY 07/25/18 07/25/18 History phenytoin sodium extended 300 mg PO Q OTHER DAY 07/25/18 07/25/18 History [Dilantin Extended] potassium chloride [Klor-Con M20] 20 meq PO DAILY 07/25/18 07/25/18 History Allergies Allergy/AdvReac Type Severity Reaction Status Date / Time cephalexin Allergy Severe RASH Verified 07/25/18 11:46 SWELLING OF EYE LIDS Penicillins Allergy Severe HIVES Verified 07/25/18 11:46 Past Med/Surg History Medical History HTN (hypertension) (Chronic) Hypothyroidism (Chronic) Senile osteoporosis (Chronic) Seizure disorder (Chronic) HTN (hypertension) (Chronic) Surgical History History of colonoscopy (Chronic) History of tonsillectomy and adenoidectomy (Chronic) History of total vaginal hysterectomy (Chronic) History of bladder repair surgery (Chronic) Family History Mother , 88 Stroke Father , 30s Accident at workplace, Onset Age: 30 [employer] Social History Preferred Language: German Communication Ability: Effective Production Supervisor Off Shift Required: No Beliefs That Will Affect Care: None marital status: / Current Living Situation: Alone current occupational status: retired Other Information That Helps Us Care for You: No Feels Safe at Home: Yes Safety Concerns: Feels Safe At This Time Smoking Status: Former smoker Smoking End Date: 1969 Second Hand Exposure: Yes (not since 1969) Hx Alcohol Use: Yes Alcohol type: wine Hx Substance Use: No Review of Systems See HPI for pertinent positives & negatives. and A total of 10 systems reviewed and were otherwise negative Physical Exam Vital Signs Vital Signs - 24 hr 07/25/18 11:22 07/25/18 11:35 07/25/18 11:37 Temperature 36.5 C Temperature Source Oral Sepsis Recent Fever Within 48 Hours No Sepsis New/Unexplained Change in Mental Status No Sepsis Action Taken by Nursing No Action Required Pulse Rate 109 H 95 H 94 H Pulse Rate from SpO2 Sensor 94 H 95 H Respiratory Rate 18 16 23 Respiratory Effort / Characteristics Non-Labored Spontaneous Respiratory Depth Normal Blood Pressure 225/136 H 237/145 H Blood Pressure Mean 165 175 Blood Pressure Position Sitting Pulse Oximetry 99 99 98 Oxygen Delivery Method Room Air 07/25/18 11:40 07/25/18 11:54 07/25/18 12:00 Temperature Temperature Source Sepsis Recent Fever Within 48 Hours Sepsis New/Unexplained Change in Mental Status Sepsis Action Taken by Nursing Pulse Rate 94 H 90 91 H Pulse Rate from SpO2 Sensor 92 H Respiratory Rate 22 26 H 19 Respiratory Effort / Characteristics Respiratory Depth Blood Pressure 227/157 H 231/144 H 226/118 H Blood Pressure Mean 180 173 154 Blood Pressure Position Pulse Oximetry 97 Oxygen Delivery Method 07/25/18 12:01 07/25/18 12:12 07/25/18 12:13 Temperature Temperature Source Sepsis Recent Fever Within 48 Hours Sepsis New/Unexplained Change in Mental Status Sepsis Action Taken by Nursing Pulse Rate 86 79 79 Pulse Rate from SpO2 Sensor 86 79 78 Respiratory Rate 15 12 13 Respiratory Effort / Characteristics Respiratory Depth Blood Pressure 186/94 H Blood Pressure Mean 124 Blood Pressure Position Pulse Oximetry 98 96 96 Oxygen Delivery Method 07/25/18 12:15 07/25/18 12:30 Temperature Temperature Source Sepsis Recent Fever Within 48 Hours Sepsis New/Unexplained Change in Mental Status Sepsis Action Taken by Nursing Pulse Rate 77 72 Pulse Rate from SpO2 Sensor 76 73 Respiratory Rate 21 21 Respiratory Effort / Characteristics Respiratory Depth Blood Pressure 183/103 H Blood Pressure Mean 129 Blood Pressure Position Pulse Oximetry 97 99 Oxygen Delivery Method Constitutional: Vital signs reviewed. Eyes: Pupils are equal round reactive to light. Conjunctiva are noninjected. ENT: Pharynx is clear without erythema or exudate. Mucous membranes are moist. Neck supple without meningeal signs. Respiratory: Clear to auscultation bilaterally. Breath sounds are equal bilaterally. Cardiovascular: Regular rate and rhythm. No rubs or gallops. GI: Soft, nondistended and nontender. Bowel sounds are present. Musculoskeletal: No peripheral edema. No lower extremity tenderness. Integumentary: No cyanosis. Neurological: The patient is awake and alert. Cranial nerves II-XII are intact. Motor is 5 out of 5 all extremities. Sensation is intact to light touch all extremities. Slight problem with articulation but otherwise normal speech. No speech slurring. No pronator drift. No limb ataxia. Psychiatric: Normal affect. Course 1151: The patient was evaluated in room A2. A history and physical were performed. 1237: The patient's speech seems better but is not back to baseline. Her blood pressure has improved. 1238: I discussed the patient's case with Dayana Greenberg. She will evaluate the patient for further management. Consultations Consultation #1: Dayana Greenberg Time: 12:38 Administered Medications Nicardipine HCl 25 mg/ Sodium (Chloride) 250 mls @ 0 mls/hr IV .Q0M [facility]; Protocol Stop: 08/24/18 14:29 Last Titration: 07/25/18 15:35 Dose: 0 mg/hr, 0 mls/hr Documented by: [id number] Admin: 07/25/18 14:30 Dose: 5 mg/hr, 50 mls/hr Documented by: [id number] Cosigned by: [id number] Ioversol (Optiray 320 125ml) 121 ml IV ONCE PRN PRN Reason: Interaction Checking Stop: 07/29/18 16:31 Last Admin: 07/25/18 16:33 Dose: 121 ml Documented by: [id number] Metoprolol Tartrate (Lopressor) 25 mg PO BID [facility] Stop: 08/24/18 20:59 Last Admin: 07/25/18 15:35 Dose: 25 mg Documented by: [id number] Discontinued Medications Labetalol HCl (Normodyne) 10 mg IV NOW STA Stop: 07/25/18 12:03 Last Admin: 07/25/18 12:07 Dose: 10 mg Documented by: [id number] Cosigned by: [id number] Labetalol HCl (Normodyne) 10 mg IV NOW STA Stop: 07/25/18 13:21 Last Admin: 07/25/18 13:33 Dose: 10 mg Documented by: [id number] Cosigned by: [id number] Lisinopril (Zestril) 20 mg PO DAILY [place] Stop: 08/24/18 15:14 Last Admin: 07/25/18 15:30 Dose: 20 mg Documented by: [id number] Medical Decision Making Differential Diagnosis Differentials include stroke, TIA, intracranial mass, ICH, and hypertensive emergency. Medical Records Attestation: I reviewed the patient's medical records. I did perform a limited focused review of portions of the patient's old chart on the electronic medical record. The patient had a negative CT scan in 2006. Home Medications Current Medication List: was personally reviewed by me Laboratory Data Attestation: I reviewed the patient's lab results. Result diagrams: 07/25/18 11:33 07/25/18 11:33 Lab Results 07/25/18 07/25/18 07/25/18 Range/Units 11:33 11:33 11:33 WBC 7.00 (4.8-10.8) K/uL RBC 4.77 (4.2-5.4) M/uL Hgb 16.3 H (12.0-16.0) g/dL Hct 44.8 (37-47) % MCV 93.9 (80-100) fL MCH 34.2 H (25-34) pg MCHC 36.4 H (32-36) g/dL RDW Std Deviation 44.9 (36.4-46.3) fL RDW Coeff of Abdiel 13.0 (11.5-14.5) % Plt Count 255 (130-400) K/uL MPV 9.0 (7.4-10.4) fL PT 10.5 (9.0-12.0) Seconds INR 1.0 (0.9-1.1) APTT 26.5 (21.0-31.0) Seconds PTT Ratio 1.0 Sodium 135 L (136-145) mmol/L Potassium 3.6 (3.5-5.1) mmol/L Chloride 100 (98-107) mmol/L Carbon Dioxide 29 (21-32) mmol/L Anion Gap 7.0 (3-11) BUN 17 (7-18) mg/dl Creatinine 0.78 (0.6-1.2) mg/dl Est Cr Clr Drug Dosing 55.8 ml/min Est GFR ( Amer) 85.6 Est GFR (Non-Af Amer) 73.8 BUN/Creatinine Ratio 21.5 H (10-20) Glucose 104 H (70-99) mg/dl POC Glucose (70-99) Estimat Average Glucose mg/dl Hemoglobin A1c (4.5-5.6) % Calcium 9.2 (8.5-10.1) mg/dl Magnesium 2.0 (1.8-2.4) mg/dl Total Bilirubin 0.3 (0.2-1) mg/dl AST 27 (15-37) U/L ALT 40 (12-78) U/L Alkaline Phosphatase 138 H (45-117) U/L Troponin I (0-0.045) ng/ml Total Protein 7.8 (6.4-8.2) gm/dl Albumin 4.2 (3.4-5.0) gm/dl Globulin 3.6 (2.5-4.0) gm/dl Albumin/Globulin Ratio 1.2 (0.9-2) Triglycerides (0-150) mg/dl Cholesterol (0-200) mg/dl LDL Cholesterol, Calc mg/dl VLDL Cholesterol, Calc mg/dl HDL Cholesterol mg/dl Cholesterol/HDL Ratio TSH (0.300-4.500) uIu/ml 07/25/18 07/25/18 07/25/18 Range/Units 11:33 11:33 11:33 WBC (4.8-10.8) K/uL RBC (4.2-5.4) M/uL Hgb (12.0-16.0) g/dL Hct (37-47) % MCV (80-100) fL MCH (25-34) pg MCHC (32-36) g/dL RDW Std Deviation (36.4-46.3) fL RDW Coeff of Abdiel (11.5-14.5) % Plt Count (130-400) K/uL MPV (7.4-10.4) fL PT (9.0-12.0) Seconds INR (0.9-1.1) APTT (21.0-31.0) Seconds PTT Ratio Sodium (136-145) mmol/L Potassium (3.5-5.1) mmol/L Chloride (98-107) mmol/L Carbon Dioxide (21-32) mmol/L Anion Gap (3-11) BUN (7-18) mg/dl Creatinine (0.6-1.2) mg/dl Est Cr Clr Drug Dosing ml/min Est GFR ( Amer) Est GFR (Non-Af Amer) BUN/Creatinine Ratio (10-20) Glucose (70-99) mg/dl POC Glucose (70-99) Estimat Average Glucose 105 mg/dl Hemoglobin A1c 5.3 (4.5-5.6) % Calcium (8.5-10.1) mg/dl Magnesium (1.8-2.4) mg/dl Total Bilirubin (0.2-1) mg/dl AST (15-37) U/L ALT (12-78) U/L Alkaline Phosphatase (45-117) U/L Troponin I < 0.015 (0-0.045) ng/ml Total Protein (6.4-8.2) gm/dl Albumin (3.4-5.0) gm/dl Globulin (2.5-4.0) gm/dl Albumin/Globulin Ratio (0.9-2) Triglycerides 254 H (0-150) mg/dl Cholesterol 234 H (0-200) mg/dl LDL Cholesterol, Calc 103 mg/dl VLDL Cholesterol, Calc 51 mg/dl HDL Cholesterol 80 mg/dl Cholesterol/HDL Ratio 3 TSH 1.570 (0.300-4.500) uIu/ml 07/25/18 Range/Units 11:59 WBC (4.8-10.8) K/uL RBC (4.2-5.4) M/uL Hgb (12.0-16.0) g/dL Hct (37-47) % MCV (80-100) fL MCH (25-34) pg MCHC (32-36) g/dL RDW Std Deviation (36.4-46.3) fL RDW Coeff of Abdiel (11.5-14.5) % Plt Count (130-400) K/uL MPV (7.4-10.4) fL PT (9.0-12.0) Seconds INR (0.9-1.1) APTT (21.0-31.0) Seconds PTT Ratio Sodium (136-145) mmol/L Potassium (3.5-5.1) mmol/L Chloride (98-107) mmol/L Carbon Dioxide (21-32) mmol/L Anion Gap (3-11) BUN (7-18) mg/dl Creatinine (0.6-1.2) mg/dl Est Cr Clr Drug Dosing ml/min Est GFR ( Amer) Est GFR (Non-Af Amer) BUN/Creatinine Ratio (10-20) Glucose (70-99) mg/dl POC Glucose 101 H (70-99) Estimat Average Glucose mg/dl Hemoglobin A1c (4.5-5.6) % Calcium (8.5-10.1) mg/dl Magnesium (1.8-2.4) mg/dl Total Bilirubin (0.2-1) mg/dl AST (15-37) U/L ALT (12-78) U/L Alkaline Phosphatase (45-117) U/L Troponin I (0-0.045) ng/ml Total Protein (6.4-8.2) gm/dl Albumin (3.4-5.0) gm/dl Globulin (2.5-4.0) gm/dl Albumin/Globulin Ratio (0.9-2) Triglycerides (0-150) mg/dl Cholesterol (0-200) mg/dl LDL Cholesterol, Calc mg/dl VLDL Cholesterol, Calc mg/dl HDL Cholesterol mg/dl Cholesterol/HDL Ratio TSH (0.300-4.500) uIu/ml Imaging Data Radiologist's Impression: Radiology results as stated below per my review and the radiologist's interpretation: HEAD CT NONCONTRAST CT DOSE: 537.48 mGy.cm HISTORY: Slurred speech. stroke symptoms TECHNIQUE: Multiaxial CT images of the head were performed without the use of intravenous contrast. Automated exposure control was utilized for this study. A dose lowering technique was utilized adhering to the principles of ALARA. Comparison: Head CT 04/29/2006. Findings: The paranasal sinuses and mastoid air cells are clear. The calvarium and skull base are intact. There is no mass, hematoma, midline shift, acute infarct. White matter hypodensity is nonspecific but suggestive of microvascular ischemic change. The ventricles and sulci demonstrate mild age-related involutional changes. 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 Impression: No acute intracranial abnormality. Atrophy and microvascular ischemic changes. 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 Electronically signed by: Liam Mayer M.D. 07/25/2018 11:57 AM XR chest 1V portable HISTORY: Stroke symptoms. COMPARISON: None. FINDINGS: The lungs are clear. Cardiac silhouette is normal in size. No pleural effusions. No pneumothorax. IMPRESSION: No acute process. Electronically signed by: Liam Mayer M.D. 07/25/2018 1:37 PM ECG Data Attestation: I personally reviewed and interpreted this ECG as follows: Indication: other (stroke symptoms) Rate (beats per minute): 96 Rhythm: normal sinus Findings: no PVC and no ST elevation Blood Pressure Blood Pressure Findings: Elevated blood pressure Blood Pressure Disposition: Referred to patients primary care provider [facility] Narrative I did evaluate the patient as noted above. Patient is presenting with strokelike symptoms. She states she has dysarthria as well as noticed a facial droop at home on the right side. On my examination she has a NIH scale of 1. She is neurologically intact. I do not believe she is a TPA candidate given the mildness of her symptoms with seemingly rapid improvement as well as the lack of clarity as to the onset of symptoms. IV access was established. The patient was placed on a continuous site monitor. I did order and personally review the patient's 12-lead EKG as described above. There is no evidence of acute ischemia. I did order and personally reviewed the images of the patient's chest x-ray as described above. There is no pneumonia. I did order and review the patient's blood work as noted in the electronic medical record. She has mild hyponatremia. I did order a CT of the head. I did review the images myself as well as the radiology report as described above. There is no evidence of acute intracranial process. I did treat the patient with labetalol for her severely elevated hypertension. I did discuss the test results with her. She does state that she has some improvement but still has some difficulty with articulation of her words. She has no facial droop at this time. I did recommend hospitalization for further evaluation of her symptoms and control of her blood pressure. I did discuss case with the hospitalist and bottle caser. Impression & Plan Hypertensive emergency, Dysarthria, Facial droop Discharge Plan Visit Data *Final* Discharge Date/Time: 07/25/18 14:20 Chief Complaint: Stroke/CVA Symptoms Stated Complaint: SLURRED SPEECH, CAN'T WRITE WELL ED Provider: Donald Araiza Discharge Problem: Hypertensive emergency, Dysarthria, Facial droop Patient Disposition: Admitted As Inpatient Discharge Instructions Interventions: ED Discharge Assessment Last Done: 07/25/18 14:20 The scribe's documentation has been prepared under my direction and personally reviewed by me in its entirety. I confirm that the note above accurately reflects all work, treatment, procedures, and medical decision making performed by me.
[2018-07-25] MEDS: CLOPIDOGREL BISULFATE 75 MG TAB PO SCH (18:41)
[2018-07-25] MEDS ORDERED: PHENYTOIN SODIUM ER 100 MG CAP PO SCH (21:00)
[2018-07-25] MEDS: HEPARIN SOD 5,000 UNIT/0.5 ML VIAL SQ SCH (21:23)
[2018-07-26 04:52] LABS: Basophils # (auto) 0.03 K/uL (0-0.2); Basophils % (auto) 0.4 %; Eosinophils # (auto) 0.06 K/uL (0-0.5); Eosinophils % (auto) 0.8 %; Hematocrit (blood only) 41.7 % (37-47); Hemoglobin 15.2 g/dL (12.0-16.0); Immature Granulocytes # (auto) 0.02 K/uL (0.00-0.02); Immature Granulocytes % (auto) 0.3 %; Lymphocytes # (auto) 1.97 K/uL (1.2-3.4); Lymphocytes % (auto) 27.6 %; Mean Corpuscular Hgb Conc 36.5 g/dL (32-36); Mean Corpuscular Volume 92.9 fL (80-100); Monocytes # (auto) 0.59 K/uL (0.11-0.59); Monocytes % (auto) 8.3 %; Neutrophils # (auto) 4.48 K/uL (1.4-6.5); Neutrophils % (auto) 62.6 %; Platelet Count 244 K/uL (130-400); RDW Coefficient of Variation 13.3 % (11.5-14.5); RDW Standard Deviation 44.9 fL (36.4-46.3); Red Blood Count 4.49 M/uL (4.2-5.4); White Blood Count 7.15 K/uL (4.8-10.8)
[2018-07-26 05:12] LABS: BUN Creatinine Ratio 24.6 (10-20); Creatinine Clr Calc Pharmacy 47.5 ml/min; Est GFR (Non-African American) 64.7
[2018-07-26] MEDS: LEVOTHYROXINE SODIUM 88 MCG TABLET PO SCH (05:38)
[2018-07-26] MEDS ORDERED: PHENYTOIN SODIUM ER 100 MG CAP PO SCH ×2 (09:00→21:00)
[2018-07-26] MEDS ORDERED: ATORVASTATIN 10 MG TAB PO SCH (09:00)
[2018-07-26] MEDS: CLOPIDOGREL BISULFATE 75 MG TAB PO SCH (09:22)
[2018-07-26] MEDS: METOPROLOL TARTRATE 25 MG TAB PO SCH ×2 (09:22→21:07)
[2018-07-26] MEDS: HEPARIN SOD 5,000 UNIT/0.5 ML VIAL SQ SCH (09:22)
[2018-07-26] MEDS: ASPIRIN 81 MG ECTAB PO SCH (09:22)
[2018-07-26] MEDS: ATORVASTATIN 40 MG TAB PO SCH (09:23)
[2018-07-26] MEDS: LISINOPRIL 10 MG TAB PO SCH (09:23)
--- NOTE | 2018-07-26 10:24 | Critical Care Progress Note ---
Date of Service July 26, 2018 Assessment & Plan (1) Hypertensive emergency: Impression: 1. Hypertensive crisis, with neurologic symptoms, resolved neurologic symptoms with improvement in her blood pressure. 2. Hypercholesterolemia, with elevated cholesterol and triglycerides. 3. History of seizure disorder has been maintained on DPH. 4. TIA. Plan: 1. Blood pressure control to keep systolic blood pressure between 1 40-1 80. However, she responded to the treatment and her blood pressure currently 130 systolic. 2. Continue Lopressor 25 mg p.o. twice daily. 3. Continue lisinopril 10 mg p.o. daily. 4. Aspirin 81 mg and Plavix 75 mg p.o. daily. 5. Continue Dilantin and levothyroxine. 6. DVT prophylaxis. 7. We will check with neurology if they need repeated images. 8. Transfer to monitored bed. 9. Discontinue nicardipine. 10. Discussed with Dr. De La Garza. Discussed with the staff on rounds in details. Critical care time spent with the patient was 45 minutes. Subjective The patient started to have symptoms including numbness on the right side of her tongue as well as mild muscle weakness of her facial labial muscle. Blood pressure is well controlled. Denies any pain, no headache, no visual disturbances, no focal weakness otherwise. Review of Systems Review of Systems: Review of system otherwise was unremarkable, she has no dysphonia or dysarthria, she does not have slurred speech when I interviewed her. Physical Exam Physical Exam: Her vital signs are stable, S1-S2, distant breath sounds, abdomen is benign, no edema, neurologically she has weakness of the 5th and 7th cranial nerve on the right, otherwise she is 5 out of 5 x 4 extremities, no sensation or loss. Babinski downgoing toes. Maintained her reflexes. Good cough reflex. No dysphasia. Results & Data Vital Signs (Past 12 Hours) Vital Signs Temp Pulse Resp BP Pulse Ox 07/26/18 08:01 36.7 C 88 23 150/86 H 97 07/26/18 07:17 76 07/26/18 07:00 75 16 127/70 07/26/18 04:00 36.6 C 85 19 111/58 L 94 07/26/18 03:00 72 14 107/59 L 07/26/18 02:00 74 19 99/54 L 07/26/18 01:01 87 16 102/56 L 07/26/18 00:00 80 19 114/66 93 07/25/18 23:01 90 21 113/56 L Laboratory Results Labs were reviewed which showed stable CBC and BMP. Diagnostic Findings No new imaging. Awaiting echo report.
--- NOTE | 2018-07-26 10:50 | Neurology Progress Note ---
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 Etiology of stroke likely small vessel. CTA head and neck negative for any large vessel occlusion or sig nificant stenosis. Transthoracic echocardiogram showed a normal ejection fraction and no shunt. No cardiac source of embolism. Recommended to continue dual antiplatelet for 21 days and aspirin 81 mg daily indefinitely. Recommend high intensity statin. Blood pressure goal is normotension systolic blood pressure less than 140 diastolic blood pressure less than 90. Patient will need follow-up with neurology in 8 weeks. Okay to discharge from neuro standpoint when blood pressures have normalized. July 26, 2018 Subjective Patient was seen and examined. Reports waking this morning to dysarthria and right facial droop similar to symptoms she had yesterday. Denies any other symptoms or concerns. She did not sleep well. Physical Exam Physical Exam: EXAM: Constitutional: appearance normally developed, well nourished and non-obese Head and Face: normocephalic and atraumatic Eyes: normal lids, normal conjunctiva Neck: supple Respiratory: normal effort Cardiovascular: normal pulses Abdomen: non distended Skin: no rashes, lesions, or ulcers noted Psychiatric: normal judgement and insight, normal mood and normal affect NEUROLOGIC EXAMINATION: Appearance: no acute distress Orientation: awake, alert and oriented x 3 Mental Status: alert Memory: registration 3/3 and recall 3/3 Attention: normal Knowledge: appropriate Language: no aphasia Speech: mild dsyarthria Cranial Nerves: CN 2 - no visual defect on confrontation and pupils round, equal, reactive to light CN 3, 4, 6 - extra-ocular movements intact and no nystagmus CN 5 - facial sensation intact CN 7 - right facial droop , forehead is spared CN 8 - intact hearing CN 9, 10 - palate symmetric CN 11 - good shoulder shrug CN 12 - tongue midline Gait: deferred Coordination: no ataxia with finger to nose testing Sensory: intact to light touch Muscle Tone: normal Muscle exam: 5/5 throughout Reflexes: Ring Negative Results & Data Vital Signs (Past 12 Hours) Vital Signs Temp Pulse Resp BP Pulse Ox 07/26/18 08:01 36.7 C 88 23 150/86 H 97 07/26/18 07:17 76 07/26/18 07:00 75 16 127/70 07/26/18 04:00 36.6 C 85 19 111/58 L 94 07/26/18 03:00 72 14 107/59 L 07/26/18 02:00 74 19 99/54 L 07/26/18 01:01 87 16 102/56 L 07/26/18 00:00 80 19 114/66 93 07/25/18 23:01 90 21 113/56 L
--- NOTE | 2018-07-26 13:31 | Hospitalist Progress Note ---
Date of Service July 26, 2018 Assessment & Plan (1) Dysarthria: Acute stroke (cerebrovascular accident) -78-year-old woman admitted on 07/26/18 to the intensive car unit acute onset right facial droop and dysarthria secondary to acute lacunar infarct with hypertensive emergency -Brain MRI on 07/25/18 reveals Small acute infarct (9 mm) within the left centrum semiovale. No mass effect. No hemorrhage. and Multiple old lacunar infarcts and moderate small vessel disease -CTA head and neck negative for any large vessel occlusion or significant stenosis. Transthoracic echocardiogram showed a normal ejection fraction and no shunt. No cardiac source of embolism. -patient was given aspirin 324 mg in the ICU on 07/25/18 and was started on clopidogrel 75 mg daily -continue dual antiplatelet of clopidogrel and aspirin (changed to 81 mg daily by 07/26/18)for 21 days and then continue aspirin 81 mg daily indefinitely -continue atorvastatin 40 mg daily which was started on this admission -Blood pressure goal is normotension systolic blood pressure less than 140 diastolic blood pressure less than 90; blood pressure much better controlled after ICU intervention on 07/25/18 on nicardipine drip when labetalol was not efficacious; continue lisinopril 10 mg daily and metoprolol 25 mg BID as started by intensive care unit doctor on this admission -continue the physical and occupational and speech therapy evaluations while in the hospital - patient does not appear to have other motor deficits of upper or lower extremities and no choking during the swallowing -will transfer from ICU level of care to telemetry unit on 07/26/18 -Patient will need follow-up with neurology in 8 weeks (2) Hypertensive emergency: Hypertension -hypertensive emergency resolved -continue blood pressure management as above (3) Hypercholesteremia: -Total cholesterol elevated at 234, trig 254, LDL 103, HDL 80 -continue atorvastatin 40 mg daily which was started on this admission (4) Hypothyroidism: -TSH 1.57 -Continue Levoythroxine (5) Seizure disorder: History of seizures in the distant past - last known seizure was 1983 - on phenytoin at home - Continue home dose phenytoin - no seizure episode on this hospital admission so far (6) Senile osteoporosis: Continue Fosamax as outpatient (7) DVT prophylaxis: SCDS Subjective normal finger to nose test, patient is ambulatory without assistance, no motor deficits of extremities, facial droop of right side is more pronounced today, patent able to speak fluently, denies headache or problems with vision. discussed with neurologist about facial droop being more pronounced and neurologist advises to continue current treatment. denies chest pain or shortness of breath. denies abdominal pain. no problems with eating. no choking. no vomiting. no fever Physical Exam Constitutional: WD/WN, vitals as above Eyes: PERRL, conjunctivae normal, anicteric sclerae EOM intact bilaterally ENMT: external ear and nose normal, oropharynx normal Respiratory: normal respiratory effort, lungs clear to auscultation Cardiovascular: RRR, no murmur, no edema Gastrointestinal (Abdomen): normal bowel sounds, soft, nontender, no hepatosplenomegaly Musculoskeletal: no cyanosis or clubbing, extremities motor strength 5/5 Head/Neck/Chest: head atraumatic Neurologic: CN's II-XI intact bilaterally (right sided facial droop) normal finger to nose test, patient is ambulatory without assistance, no motor deficits of extremities, facial droop of right side is more pronounced today, patent able to speak fluently, denies headache or problems with vision. Psychiatric: A+Ox3, euthymic affect Results & Data Vital Signs (Past 12 Hours) Vital Signs Temp Pulse Resp BP Pulse Ox 07/26/18 12:01 36.6 C 79 20 147/81 H 98 07/26/18 11:44 75 19 144/96 H 07/26/18 11:00 78 24 159/105 H 07/26/18 10:01 86 24 129/59 L 07/26/18 09:00 86 16 135/73 07/26/18 08:01 36.7 C 88 23 150/86 H 97 07/26/18 07:17 76 07/26/18 07:00 75 16 127/70 07/26/18 04:00 36.6 C 85 19 111/58 L 94 07/26/18 03:00 72 14 107/59 L 07/26/18 02:00 74 19 99/54 L
[2018-07-27] MEDS: LEVOTHYROXINE SODIUM 88 MCG TABLET PO SCH (05:38)
[2018-07-27 06:59] LABS: Basophils # (auto) 0.02 K/uL (0-0.2); Basophils % (auto) 0.4 %; Eosinophils # (auto) 0.07 K/uL (0-0.5); Eosinophils % (auto) 1.5 %; Hemoglobin 15.7 g/dL (12.0-16.0); Immature Granulocytes # (auto) 0.01 K/uL (0.00-0.02); Immature Granulocytes % (auto) 0.2 %; Lymphocytes # (auto) 1.73 K/uL (1.2-3.4); Lymphocytes % (auto) 36.1 %; Mean Corpuscular Hgb Conc 36.5 g/dL (32-36); Mean Corpuscular Volume 92.7 fL (80-100); Mean Platelet Volume 9.1 fL (7.4-10.4); Monocytes # (auto) 0.54 K/uL (0.11-0.59); Monocytes % (auto) 11.3 %; Neutrophils # (auto) 2.42 K/uL (1.4-6.5); Neutrophils % (auto) 50.5 %; Platelet Count 200 K/uL (130-400); RDW Coefficient of Variation 13.3 % (11.5-14.5); RDW Standard Deviation 44.9 fL (36.4-46.3); Red Blood Count 4.64 M/uL (4.2-5.4); White Blood Count 4.79 K/uL (4.8-10.8)
[2018-07-27 07:41] LABS: BUN Creatinine Ratio 25.3 (10-20); Calcium 8.7 mg/dl (8.5-10.1); Creatinine Clr Calc Pharmacy 62.6 ml/min; Est GFR (African American) 99.5; Est GFR (Non-African American) 85.8
[2018-07-27] MEDS ORDERED: PHENYTOIN SODIUM ER 100 MG CAP PO SCH (09:00)
[2018-07-27] MEDS: CLOPIDOGREL BISULFATE 75 MG TAB PO SCH (09:05)
[2018-07-27] MEDS: ATORVASTATIN 40 MG TAB PO SCH (09:05)
[2018-07-27] MEDS: ASPIRIN 81 MG ECTAB PO SCH (09:05)
[2018-07-27] MEDS: LISINOPRIL 10 MG TAB PO SCH (09:05)
[2018-07-27] MEDS: METOPROLOL TARTRATE 25 MG TAB PO SCH (09:05)
[2018-07-27 11:46] VITALS: PULSE 68; TEMP 98.4; O2SAT 96
[2018-07-27] MEDS ORDERED: STROKE PATIENT DISCHARGE STA (13:11)
--- NOTE | 2018-07-27 13:12 | Hospitalist Progress Note ---
Date of Service July 27, 2018 Assessment & Plan (1) Dysarthria: Acute stroke (cerebrovascular accident) -78-year-old woman admitted on 07/26/18 to the intensive car unit acute onset right facial droop and dysarthria secondary to acute lacunar infarct with hypertensive emergency -Brain MRI on 07/25/18 reveals Small acute infarct (9 mm) within the left centrum semiovale. No mass effect. No hemorrhage. and Multiple old lacunar infarcts and moderate small vessel disease -CTA head and neck negative for any large vessel occlusion or significant stenosis. Transthoracic echocardiogram showed a normal ejection fraction and no shunt. No cardiac source of embolism. -patient was given aspirin 324 mg in the ICU on 07/25/18 and was started on clopidogrel 75 mg daily -continue dual antiplatelet of clopidogrel and aspirin (changed to 81 mg daily by 07/26/18)for 21 days and then continue aspirin 81 mg daily indefinitely -continue atorvastatin 40 mg daily which was started on this admission -Blood pressure goal is normotension systolic blood pressure less than 140 diastolic blood pressure less than 90; blood pressure much better controlled after ICU intervention on 07/25/18 on nicardipine drip when labetalol was not efficacious; continue lisinopril 10 mg daily and metoprolol 25 mg BID as started by intensive care unit doctor on this admission -continue the physical and occupational and speech therapy evaluations while in the hospital - patient does not appear to have other motor deficits of upper or lower extremities and no choking during the swallowing -will transfer from ICU level of care to telemetry unit on 07/26/18 07/27/18: Patient is discharged to home -Patient has prescription to continue speech and swallow therapy for dsysarthia. As per rehabilitation caseworker discussion with patient, patient may use the prescription and follow up with [facility] outpatient services -Patient should take lisinopril 10 mg daily and Patient should take metoprolol tartate 25 mg daily. Since this blood pressure control regimen has been able to keep patient's blood pressure after initial hypertensive emergency, patient should avoid hydrochlorothiazide until follow up with primary care doctor -Besides blood pressure control, patient should atorvastatin 40 mg daily Patient was started on clopidogrel and aspirin in the hospital on 07/25/18, and take take clopidogrel for 18 more days from discharge day, and continue aspirin 81 mg daily -neurology clinic follow up09/22/2018 10:20 AM Provider Jefe Dukes DO Department Neurology [facility] (2) Hypertensive emergency: Hypertension -hypertensive emergency resolved -continue blood pressure management as above (3) Hypercholesteremia: -Total cholesterol elevated at 234, trig 254, LDL 103, HDL 80 -continue atorvastatin 40 mg daily which was started on this admission (4) Hypothyroidism: -TSH 1.57 -Continue Levoythroxine (5) Seizure disorder: History of seizures in the distant past - last known seizure was 1983 - on phenytoin at home - Continue home dose phenytoin - no seizure episode on this hospital admission (6) Senile osteoporosis: Continue Fosamax as outpatient (7) DVT prophylaxis: SCDS, aspirin/clopidogrel Discharge diagnosis Dysarthria secondary to Acute stroke (cerebrovascular accident); Hypertensive emergency (resolved); Hypertension, Hypercholesteremia, History of Seizure disorder Patient is discharged to home Patient has prescription to continue speech and swallow therapy for dsysarthia. As per rehabilitation caseworker discussion with patient, patient may use the prescription and follow up with [facility] outpatient services Patient should take lisinopril 10 mg daily and Patient should take metoprolol tartate 25 mg daily. Since this blood pressure control regimen has been able to keep patient's blood pressure after initial hypertensive emergency, patient should avoid hydrochlorothiazide until follow up with primary care doctor Patient has primary care appointment 07/30/2018 1:00 PM Provider Mary Mota MD Department General Internal Medicine [facility] Patient has a previously established appointment 09/03/2018 10:00 AM Provider Shelly Ramesh PA-C Department Rheumatology [facility] Besides blood pressure control, patient should atorvastatin 40 mg daily Patient was started on clopidogrel and aspirin in the hospital on 07/25/18, and take take clopidogrel for 18 more days from discharge day, and continue aspirin 81 mg daily 09/22/2018 10:20 AM Provider Jefe Dukes DO Department Neurology [facility] Risk Factors for Stroke: You can reduce your chances of stroke by working with your medical provider to adopt a healthy lifestyle. Some specific ways to lower your chance of stroke are: * If you are a smoker, now is the time to stop smoking cigarettes * If you are diabetic, improve the control of your blood sugars * Avoid excessive amounts of alcohol * Control high blood pressure * Lose weight if you are overweight * Be sure to lead an active lifestyle * Eat a healthy diet low in salt, cholesterol and fat You should know about other risk factors for stroke that you are unable to contr ol. These include: * Age 55 years or older * Male gender * Certain racial groups: , or / * Family History of Stroke, Mini stroke or Heart Attack * Sickle Cell Disease Follow Up: It is important for you to keep your follow up appointments with your medical provider. Who to Call and When: Medical Emergencies: Call 911 immediately if you experience any of the following warning signs and symptoms of Stroke: * Sudden numbness or weakness of the face, arm or leg, especially on one side of the body * Sudden confusion, trouble speaking or understanding * Sudden trouble seeing in one or both eyes * Sudden trouble walking, dizziness, loss of balance or coordination * Sudden severe headache with no cause Do not delay calling 911 if you experience any warning signs or symptoms of a stroke. Delay in seeking medical attention may affect what treatments can be given to you. . Subjective Right sided facial droop compared to yesterday remains unchanged. patient eating and without choking. she reports sometimes she does bite the side of the mouth on the affected right side which is same as yesterday. patient speaking well today. no motor deficits of the extremities. no headache. no dizziness. no fever. no chest pain. no shortness of breath. we discussed discharge plans and follow ups Physical Exam Constitutional: WD/WN, vitals as above Eyes: PERRL, conjunctivae normal, anicteric sclerae EOM intact bilaterally ENMT: external ear and nose normal, oropharynx normal (right sided facial droop) Neck: trachea midline, no thyromegaly Respiratory: normal respiratory effort, lungs clear to auscultation Cardiovascular: RRR, no murmur, no edema Gastrointestinal (Abdomen): normal bowel sounds, soft, nontender, no hepatosplenomegaly Musculoskeletal: no cyanosis or clubbing, extremities motor strength 5/5 Head/Neck/Chest: head atraumatic Neurologic: CN's II-XI intact bilaterally (right sided facial droop) Psychiatric: A+Ox3, euthymic affect Results & Data Vital Signs (Past 12 Hours) Vital Signs Temp Pulse Pulse Resp BP BP Pulse Ox 07/27/18 11:45 36.9 C 68 20 131/90 96 07/27/18 09:18 65 07/27/18 07:44 36.8 C 79 18 156/89 H 97 07/27/18 04:19 36.3 C L 73 16 120/75 94 07/27/18 01:24 65
--- NOTE | 2018-07-27 13:19 | Discharge Summary ---
Date of Service July 27, 2018 Admission HPI Per Admitting Provider This is a 78-year-old female who has a significant past medical history of HTN, hypothyroidism, seizure disorder, senile osteoporosis who presents to [facility] secondary to dysarthria that began at approximately 8 AM. Patient states she was going to her car repair appointment. At approximately 8 AM whenever she was talking to repair garage team she felt like she was having difficulty talking, "my tongue was in the way," she could not pronounce words. She could get words out but was having difficulty articulating them. She left the garage at approximately 8:30 AM and went home to rest. She decided to go to the bathroom and whenever she looked in the mirror she felt like she was experiencing slight left facial droop, "it is like my smile was not equal." She googled symptoms and she was concerned for stroke therefore she proceeded to seek ED. When getting in car she saw her neighbor and explained her symptoms. Her neighbor also felt that she was having difficulty articulating words. She has never had anything like this in the past. She denies any recent illness. She denies fever, chills, sweats, lightheadedness, dizziness, syncope, chest pain, shortness of breath, palpitations, cough, hemoptysis, nausea, vomiting, diarrhea, change in her bowel or urinary habits. Her appetite and weight has been stable. Patient states she monitors her blood pressure periodically. 2 days ago she was at a health screening in which her systolic blood pressure was 150s. About a week prior to that she was seen at her PCPs office and her systolic blood pressure was 118. She takes her medications regularly and took her hydrochlorothiazide this morning. 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 Events occurred in 1980 and 1983. She initially was treated with Dilantin and weaned off and developed additional episode of grand mal seizure in . She has then been on Dilantin ever since. Admission Exam Per Admitting Provider Gen: WD/WN, F, NAD, sitting up in bed, pleasant, conversing easily Head: Normocephalic, Atraumatic Eyes: Sclera normal, no conjunctival injection, PERRLA, EOMI, horizontal nystagmus noted bilaterally ENT: Gross hearing intact, normal pharynx, mucous membranes moist Neck: supple, no adenopathy, No JVD, no bruit, Resp: Clear to auscultation b/l, no wheeze, rales, rhonchi. Normal insp/exp effort, no accessory muscle use CV: Regular rate, regular rhythm, no murmur, rub, gallop, or ectopy Abd: +BS x 4, soft, nontender, nondistended Musculoskeletal: moves extremities active rom x 4, strength intact, good financial underwriter strength Extremities: No edema bilaterally Skin: warm, moist, no rash, negative turgor, cap refill < 2sec Neuro: Alert and oriented x 3, speech normal minimal dysarthria, good mood/affect, cran nerve 2-12 intact grossly, [id number] intact, negative pronator drift, [id number] intact : deferred Principal Diagnosis Dysarthria secondary to Acute stroke (cerebrovascular accident); Hypertensive emergency (resolved); Hypertension, Hypercholesteremia, History of Seizure disorder Discharge Exam Constitutional WD/WN, vitals as above Eyes PERRL, conjunctivae normal, anicteric sclerae EOM intact bilaterally ENMT external ear and nose normal, oropharynx normal (right sided facial droop) Neck trachea midline, no thyromegaly Respiratory normal respiratory effort, lungs clear to auscultation Cardiovascular RRR, no murmur, no edema Gastrointestinal (Abdomen) normal bowel sounds, soft, nontender, no hepatosplenomegaly Musculoskeletal no cyanosis or clubbing, extremities motor strength 5/5 Head/Neck/Chest: head atraumatic Neurologic CN's II-XI intact bilaterally (right sided facial droop) Psychiatric A+Ox3, euthymic affect Discharge Data Allergies Allergy/AdvReac Type Severity Reaction Status Date / Time cephalexin Allergy Severe RASH Verified 07/25/18 11:46 SWELLING OF EYE LIDS Penicillins Allergy Severe HIVES Verified 07/25/18 11:46 Consultations 07/25/18 12:38 ED Decision to Admit Stat 07/25/18 13:18 Consult Case Management - Discharge Planning Routine 07/25/18 13:19 Consult Load Dispatcher Routine 07/25/18 13:20 Consult Case Management - Discharge Planning Routine Consult Neurology Routine Ordered Studies 07/25/18 11:42 CT head/brain wo con Stat 07/25/18 13:35 CT angio head w con Routine CT angio neck with con Routine MR brain wo con Routine Hospital Course (1) Dysarthria: Acute stroke (cerebrovascular accident) -78-year-old woman admitted on 07/26/18 to the intensive car unit acute onset right facial droop and dysarthria secondary to acute lacunar infarct with hypertensive emergency -Brain MRI on 07/25/18 reveals Small acute infarct (9 mm) within the left centrum semiovale. No mass effect. No hemorrhage. and Multiple old lacunar infarcts and moderate small vessel disease -CTA head and neck negative for any large vessel occlusion or significant stenosis. Transthoracic echocardiogram showed a normal ejection fraction and no shunt. No cardiac source of embolism. -patient was given aspirin 324 mg in the ICU on 07/25/18 and was started on clopidogrel 75 mg daily -continue dual antiplatelet of clopidogrel and aspirin (changed to 81 mg daily by 07/26/18)for 21 days and then continue aspirin 81 mg daily indefinitely -continue atorvastatin 40 mg daily which was started on this admission -Blood pressure goal is normotension systolic blood pressure less than 140 diastolic blood pressure less than 90; blood pressure much better controlled after ICU intervention on 07/25/18 on nicardipine drip when labetalol was not efficacious; continue lisinopril 10 mg daily and metoprolol 25 mg BID as started by intensive care unit doctor on this admission -continue the physical and occupational and speech therapy evaluations while in the hospital - patient does not appear to have other motor deficits of upper or lower extremities and no choking during the swallowing -will transfer from ICU level of care to telemetry unit on 07/26/18 07/27/18: Patient is discharged to home -Patient has prescription to continue speech and swallow therapy for dsysarthia. As per supervisor case loading discussion with patient, patient may use the prescription and follow up with [facility] outpatient services -Patient should take lisinopril 10 mg daily and Patient should take metoprolol tartate 25 mg daily. Since this blood pressure control regimen has been able to keep patient's blood pressure after initial hypertensive emergency, patient should avoid hydrochlorothiazide until follow up with primary care doctor -Besides blood pressure control, patient should atorvastatin 40 mg daily Patient was started on clopidogrel and aspirin in the hospital on 07/25/18, and take take clopidogrel for 18 more days from discharge day, and continue aspirin 81 mg daily -neurology clinic follow up09/22/2018 10:20 AM Provider Jefe Dukes DO Department Neurology [facility] (2) Hypertensive emergency: Hypertension -hypertensive emergency resolved -continue blood pressure management as above (3) Hypercholesteremia: -Total cholesterol elevated at 234, trig 254, LDL 103, HDL 80 -continue atorvastatin 40 mg daily which was started on this admission (4) Hypothyroidism: -TSH 1.57 -Continue Levoythroxine (5) Seizure disorder: History of seizures in the distant past - last known seizure was 1983 - on phenytoin at home - Continue home dose phenytoin - no seizure episode on this hospital admission (6) Senile osteoporosis: Continue Fosamax as outpatient (7) DVT prophylaxis: SCDS, aspirin/clopidogrel Discharge diagnosis Dysarthria secondary to Acute stroke (cerebrovascular accident); Hypertensive emergency (resolved); Hypertension, Hypercholesteremia, History of Seizure disorder Patient is discharged to home Patient has prescription to continue speech and swallow therapy for dsysarthia. As per supervisor case loading discussion with patient, patient may use the prescription and follow up with [facility] outpatient services Patient should take lisinopril 10 mg daily and Patient should take metoprolol tartate 25 mg daily. Since this blood pressure control regimen has been able to keep patient's blood pressure after initial hypertensive emergency, patient should avoid hydrochlorothiazide until follow up with primary care doctor Patient has primary care appointment 07/30/2018 1:00 PM Provider Mary Mota MD Department General Internal Medicine [facility] Patient has a previously established appointment 09/03/2018 10:00 AM Provider Shelly Ramesh PA-C Department Rheumatology [facility] Besides blood pressure control, patient should atorvastatin 40 mg daily Patient was started on clopidogrel and aspirin in the hospital on 07/25/18, and take take clopidogrel for 18 more days from discharge day, and continue aspirin 81 mg daily 09/22/2018 10:20 AM Provider Jefe Dukes DO Department Neurology [facility] Risk Factors for Stroke: You can reduce your chances of stroke by working with your medical provider to adopt a healthy lifestyle. Some specific ways to lower your chance of stroke are: * If you are a smoker, now is the time to stop smoking cigarettes * If you are diabetic, improve the control of your blood sugars * Avoid excessive amounts of alcohol * Control high blood pressure * Lose weight if you are overweight * Be sure to lead an active lifestyle * Eat a healthy diet low in salt, cholesterol and fat You should know about other risk factors for stroke that you are unable to control. These include: * Age 55 years or older * Male gender * Certain racial groups: , or / * Family History of Stroke, Mini stroke or Heart Attack * Sickle Cell Disease Follow Up: It is important for you to keep your follow up appointments with your medical provider. Who to Call and When: Medical Emergencies: Call 911 immediately if you experience any of the following warning signs and symptoms of Stroke: * Sudden numbness or weakness of the face, arm or leg, especially on one side of the body * Sudden confusion, trouble speaking or understanding * Sudden trouble seeing in one or both eyes * Sudden trouble walking, dizziness, loss of balance or coordination * Sudden severe headache with no cause Do not delay calling 911 if you experience any warning signs or symptoms of a stroke. Delay in seeking medical attention may affect what treatments can be given to you. . Total Time Total Time Spent Total Time Spent (In Minutes): 40 minutes Total Time Includes: Examination of the Patient, Discharge Planning, Medication Reconciliation and Communication With Other Providers Discharge Plan Discharge Items Patient Disposition: Home - Self-Care Reason For Visit: DYSARTHRIA, HYPERTENSIVE EMERGENCY Discharge Diagnosis: Dysarthria secondary to Acute stroke (cerebrovascular accident); Hypertensive emergency (resolved); Hypertension, Hypercholesteremia, History of Seizure disorder Condition: Good Discharge Goals: Improve disease control Activity: Resume your previous activity Non-emergency contact: Primary Care Provider and Neurologist Call non-emergency contact if: you have any medication questions Follow-up/Referrals: Cari Page MD [Primary Care Provider] - Diet: Heart Healthy and Low Sodium (2gm) Addtl Provider Instructions: Patient is discharged to home Patient has prescription to continue speech and swallow therapy for dsysarthia. As per supervisor case loading discussion with patient, patient may use the prescription and follow up with [facility] outpatient services Patient should take lisinopril 10 mg daily and Patient should take metoprolol tartate 25 mg daily. Since this blood pressure control regimen has been able to keep patient's blood pressure after initial hypertensive emergency, patient should avoid hydrochlorothiazide until follow up with primary care doctor Patient has primary care appointment 07/30/2018 1:00 PM Provider Mary Mota MD Department General Internal Medicine [facility] Patient has a previously established appointment 09/03/2018 10:00 AM Provider Shelly Ramesh PA-C Department Rheumatology [facility] Besides blood pressure control, patient should atorvastatin 40 mg daily Patient was started on clopidogrel and aspirin in the hospital on 07/25/18, and take take clopidogrel for 18 more days from discharge day, and continue aspirin 81 mg daily 09/22/2018 10:20 AM Provider Jefe Dukes DO Department Neurology [facility] Risk Factors for Stroke: You can reduce your chances of stroke by working with your medical provider to adopt a healthy lifestyle. Some specific ways to lower your chance of stroke are: * If you are a smoker, now is the time to stop smoking cigarettes * If you are diabetic, improve the control of your blood sugars * Avoid excessive amounts of alcohol * Control high blood pressure * Lose weight if you are overweight * Be sure to lead an active lifestyle * Eat a healthy diet low in salt, cholesterol and fat You should know about other risk factors for stroke that you are unable to control. These include: * Age 55 years or older * Male gender * Certain racial groups: , or / * Family History of Stroke, Mini stroke or Heart Attack * Sickle Cell Disease Follow Up: It is important for you to keep your follow up appointments with your medical provider. Who to Call and When: Medical Emergencies: Call 911 immediately if you experience any of the following warning signs and symptoms of Stroke: * Sudden numbness or weakness of the face, arm or leg, especially on one side of the body * Sudden confusion, trouble speaking or understanding * Sudden trouble seeing in one or both eyes * Sudden trouble walking, dizziness, loss of balance or coordination * Sudden severe headache with no cause Do not delay calling 911 if you experience any warning signs or symptoms of a stroke. Delay in seeking medical attention may affect what treatments can be given to you. . Prescriptions: New atorvastatin 40 mg Tablet 40 mg PO QAM 30 Days Qty: 30 RF: 0 clopidogrel 75 mg Tablet 75 mg PO QAM 18 Days Qty: 18 RF: 0 aspirin [Ecotrin Low Strength] 81 mg Tablet,Delayed Release (Dr/Ec) 81 mg PO DAILY 30 Days Qty: 30 RF: 0 lisinopril 10 mg Tablet 10 mg PO DAILY 30 Days Qty: 30 RF: 0 metoprolol tartrate 25 mg Tablet 25 mg PO BID 30 Days Qty: 60 RF: 0 Continued multivitamin Tablet 1 tab PO DAILY RF: 0 alendronate 70 mg tablet 70 mg PO WK RF: 0 phenytoin sodium extended [Dilantin Extended] 100 mg Capsule 300 mg PO Q OTHER DAY RF: 0 aspirin [Aspirin Low Dose] 81 mg Tablet,Delayed Release (Dr/Ec) 81 mg PO QPM RF: 0 levothyroxine 88 mcg tablet 88 mcg PO QAM RF: 0 Caltrate 600 + D 600 mg (1,500 mg)-800 unit Tablet,Chewable 1 tab PO BID RF: 0 phenytoin sodium extended 100 mg capsule 200 mg PO Q OTHER DAY RF: 0 Discontinued potassium chloride [Klor-Con M20] 20 mEq tablet,ER particles/crystals 20 meq PO DAILY RF: 0 lisinopril 5 mg Tablet 5 mg PO HS RF: 0 hydrochlorothiazide 25 mg tablet 25 mg PO QAM RF: 0 Stand-Alone Forms: [facility] Discharge Orders: Discharge Order (Routine); Ordered 07/27/18 Ordered By: Eyal De La Garza Admission Data Admit Date/Time: 07/25/18 13:18 Attending Provider: Eyal De La Garza Admit Provider: Eyal De La Garza Primary Care Provider: Cari Page Other Providers: Eyal De La Garza ; Guillaume Felder ; Jefe Dukes Service: Intensive Care Unit
[2018-07-27 13:57] VITALS: BP 156/89
--- NOTE | 2018-07-27 14:18 | Pharmacy Report ---
Pharmacist Stroke Counseling - Date of Service July 27, 2018 - Scope: Pharmacy has been consulted to provide medication discharge counseling for this patient admitted with ischemic stroke as per the Pharmacist Discharge Counseling for Stroke Patients Protocol. - Medications on Discharge: Home Medications Medication Instructions Recorded Confirmed Caltrate 600 + D 1 tab PO BID 07/25/18 07/25/18 alendronate 70 mg PO WK 07/25/18 07/25/18 aspirin [Aspirin Low Dose] 81 mg PO QPM 07/25/18 07/25/18 levothyroxine 88 mcg PO QAM 07/25/18 07/25/18 multivitamin 1 tab PO DAILY 07/25/18 07/25/18 phenytoin sodium extended 200 mg PO Q OTHER DAY 07/25/18 07/25/18 phenytoin sodium extended 300 mg PO Q OTHER DAY 07/25/18 07/25/18 [Dilantin Extended] New Rx's Medication Instructions Recorded aspirin [Ecotrin Low Strength] 81 mg PO DAILY 30 Days #30 tab 07/27/18 atorvastatin 40 mg PO QAM 30 Days #30 tab 07/27/18 clopidogrel 75 mg PO QAM 18 Days #18 tab 07/27/18 lisinopril 10 mg PO DAILY 30 Days #30 tab 07/27/18 metoprolol tartrate 25 mg PO BID 30 Days #60 tab 07/27/18 - Action: The above medications, specifically ones for stroke treatment/prophylaxis, have been reviewed in detail with the patient and/or patient field sales representative(s) prior to discharge. This includes indication, common adverse reactions, drug interactions, and medication administration. Medication counseling has been employed using the teach-back method to ensure understanding. - Outcome: The patient and/or patient field sales representative(s) have demonstrated understanding of the medications. Please note, they are aware that the pharmacist will call them within 72 hours post-discharge to confirm that the appropriate medications are being taken and answer any further medication related questions the patient might have at that time. Contact information Individual to be contacted: Zuleima Lema Relationship to patient (if applicable): n/a Phone number: , please leave a voicemail and a phone number. Pt by her own admission does not normally answer the phone unless she recognizes the phone number. I wrote down the hospital phone number but she would prefer we leave a voicemail so that she is able to call back. Best time to call: morning Additional comments: Discussed the need for DAPT and why it is indicated. She is aware that she will only be taking the plavix 75mg for 18 more days. Further, I counseled her on the lopresser 25mg BID and lisinopril 10mg (inc from 5mg). D/w pt that our RAAS is most active at night, there is a benefit to taking lisinopril at night. Pt is agreeable. She felt that her LDL@104 was not severely elevated. I d/w pt that the newest lipid guidelines recommend ldl <70mg/dL. I counseled her on the ADEs of statins. If she is intolerant to lipitor a switch to a less lipophilic statin is possible: crestor 20-40mg. TGs are >150mg/dL. Could trial with icosapent ethyl 2g BID. Will d/w primary team about potential benefits. Thank you for allowing pharmacy to be involved in the care of this patient. Please call [phone] or [phone] with any additional questions
--- NOTE | 2018-07-29 15:18 | Pharmacy Report ---
Pharmacist Post D/C Phone Note - Phone Note: Date of phone call: July 29, 2018. Individual with whom pharmacist spoke to: MUSA Mckenzie SAIGEManan The following questions were reviewed during the phone call with responses listed below each: Can you tell me the medications that you are currently taking as well as when and how you take each medication? -See Table Below When have you missed any doses of your medications? - none. organizes medications with pill box What side effects are you having from your medications, specifically, the new medications you were started on? - She sneezed one time and had just a little bit of a bloody nose, but she thought this could be allergies/dry nose. - She has been feeling "emotional" but she thinks it is just due to feeling overwhelmed and is feeling better What questions do you have about your medications? - none What problems are you having obtaining your medications? - none- [facility] but will f/u with PCP When is your next appointment with your primary care doctor? - 07/30/18 As per the Pharmacist Discharge Counseling for Stroke Patients Protocol, this phone call has been completed within 72 hours of discharge. Thank you for allowing us to be involved in the care of this patient. - Home Medications: Home Medications Medication Instructions Recorded Confirmed Caltrate 600 + D 1 tab PO BID 07/25/18 07/25/18 alendronate 70 mg PO WK 07/25/18 07/25/18 aspirin [Aspirin Low Dose] 81 mg PO QPM 07/25/18 07/25/18 levothyroxine 88 mcg PO QAM 07/25/18 07/25/18 multivitamin 1 tab PO DAILY 07/25/18 07/25/18 phenytoin sodium extended 200 mg PO Q OTHER DAY 07/25/18 07/25/18 phenytoin sodium extended 300 mg PO Q OTHER DAY 07/25/18 07/25/18 [Dilantin Extended] New Rx's Medication Instructions Recorded aspirin [Ecotrin Low Strength] 81 mg PO DAILY 30 Days #30 tab 07/27/18 atorvastatin 40 mg PO QAM 30 Days #30 tab 07/27/18 clopidogrel 75 mg PO QAM 18 Days #18 tab 07/27/18 lisinopril 10 mg PO DAILY 30 Days #30 tab 07/27/18 metoprolol tartrate 25 mg PO BID 30 Days #60 tab 07/27/18
== END 2018-07-27 16:28 | disposition home or self-care (01) | DRG 304 ==
LOC: ED 11:19 → 1E 13:18 → 2N 07-26 13:29

== ENCOUNTER 2022-08-16 14:50 | Observation (INO) ==
--- NOTE | 2022-08-16 16:37 | XRay Report ---
XR chest 1V not portable CLINICAL HISTORY: stroke alert TECHNIQUE: Single frontal radiograph of the chest was obtained. Comparison: Comparison is made to chest radiograph 05/27/2020 FINDINGS: No lines and tubes are seen. The cardiomediastinal silhouette is normal. The lungs are clear. No evid ence of pleural effusion or pneumothorax. IMPRESSION: No acute chest disease. ACT 112: Negative or not required by law. Electronically signed by: Manav Griffiths M.D. 08/16/2022 4:36 PM
--- NOTE | 2022-08-16 16:41 | CT Scan Report ---
CT SCAN OF THE BRAIN WITHOUT IV CONTRAST CLINICAL HISTORY: Neurological deficit. Stroke like symptoms. COMPARISON STUDY: CT of the brain dated 07/25/2018. MRI of the brain dated 07/25/2018. TECHNIQUE: Unenhanced axial CT scan of the brain is performed from the vertex to the skull base. A do se lowering technique was utilized adhering to the principles of ALARA. CT DOSE: 547.75 mGy.cm FINDINGS: Brain parenchyma: There is age-related involutional change noting moderate subcortical and periventri cular microangiopathic disease. There is no hemorrhage, mass effect, or evidence of acute territorial ischemia by CT criteria. Chronic lacunar infarcts are noted in both cerebellar hemispheres. Ambrocio-whi te matter differentiation is preserved. No extra-axial fluid collection is seen. Ventricles, sulci, cisterns: Prominent secondary to involutional change. Intracranial vasculature: There is atherosclerotic calcification of the cavernous carotid and vertebr al arteries. Calvarium: Unremarkable. Sinuses and mastoids: The visualized paranasal sinuses are clear. The mastoid air cells are well pneu matized. Orbits: The bony orbits are grossly intact. There are bilateral ocular lens implants. IMPRESSION: There is no hemorrhage, mass effect, or evidence of acute territorial ischemia by CT crit grabiel. ACT 112: Negative or not required by law. Electronically signed by: Walter Bonner M.D. 08/16/2022 4:39 PM
[2022-08-16] MEDS ORDERED: LABETALOL HCL IV 5 MG/ML 20ML IV STA (17:18)
--- NOTE | 2022-08-16 17:25 | Emergency Department Note ---
Impression & Plan BRAO (branch retinal artery occlusion), Hypertensive urgency ED Provider Note Provider: Tim Rubin MD DATE OF SERVICE: 08/16/2022 CHIEF COMPLAINT: Vision loss, referred, high blood pressure HISTORY OF PRESENT ILLNESS: Patient is a 82-year-old female history of CVA, hypertension, and seizure disorder on Dilantin chronically presenting here today referred from her eye doctor. States developed overnight vision loss in the right lower quadrants of her right eye vision field. Denies any significant eye or head pain. May be a bit of tightness last night in her neck but that is resolved. No trauma. Denies any numbness or weakness, dizziness, or speech issues otherwise. History of stroke by her report in 2019. Went to her eye doctors today due to the vision evaluation. History of cataract surgery. No other drops reported. They told her that she has a branch retinal artery oc clusion and noted her to be severely hypertensive and sent her here for evaluation. Patient is on a low-dose aspirin daily already. States compliance with home blood pressure medicine. They did do a dilated exam of her right eye. No seizures reported. PAST MEDICAL HISTORY: As noted above MEDICATIONS: Reviewed home medication list with her SOCIAL HISTORY: Non-smoker PHYSICAL EXAM: GENERAL: alert and oriented in no acute distress on stretcher Head: normocephalic and atraumatic EYES: No injection, discharge or icterus. Extraocular motions intact. 5 mm dilated right eye minimally reactive. Left eye 4 mm and reactive to light. NECK: Trachea midline. Supple. ENT: Mucous membranes pink and moist. LUNGS: Airway patent. No retractions. Breath sounds clear with good air entry bilaterally. HEART: Regular rate and rhythm. No chest wall tenderness ABDOMEN: Soft and non-tender, without guarding or rebound. SKIN: Acyanotic, warm, dry, without rashes EXTREMITIES: Without swelling, tenderness or deformity NEUROLOGICAL: Reports a bit of diminishment in the right lower visual quadrants with her right eye only. No aphasia. No facial droop or slurred speech. Normal strength and tone in the extremities. Sensation to gross touch normal. Ambulatory. EK bpm normal sinus rhythm. No PVC or PAC. No acute ST segment elevation or depression with a QTc of 420. CONTINUOUS CARDIAC MONITORING: was ordered and showed a heart rate of 70s-90s bpm in normal sinus rhythm Patient's laboratory studies and imaging reviewed. Differential includes Benign hypertension, hypertensive emergency, cardiovascular pathology, toxicologic, pheochromocytoma, electrolyte abnormality, renal disease, neurological/CVA, oncological/retinal detachment/CRAO/BRAO, as well as other pathologies. IMPRESSION/MEDICAL DECISION MAKING: No significant eye pain and doubt GCA or TCA specially with the report from the eye doctor that patient has a BRAO. Significantly hypertensive here. Given a bit of IV labetalol. Basic blood work obtained. Ordered cholesterol testing. CT of the head without acute findings per radiology. We will complete CT angiograms looking for medium or large vessel disease. May simply be small vessel disease. Basic labs will be obtained. No other significant neurological findings and doubt acute CVA. Obviously BRAO is indicative of significant vascular disease and discussed with her bring her in for blood pressure control and prevention for development of stroke/TIA. Blood pressure did improve here. CT angiograms without evidence of significant vascular abnormality notably. Discussed with her staying and discussed with the hospital staying for further evaluation. DIAGNOSIS: Right BRAO, hypertensive urgency DISPOSITION: Hospitalist will evaluate Patient was agreeable with this plan. Past Med/Surg History Medical History Cardiac murmur Elevated cholesterol COULD NOT TOLERATE LIPITOR HTN (hypertension) Hx of iron deficiency anemia A CHILD Hx of migraines Hypothyroidism Irregular heart beat DX ON HOLTER MONITOR (FOLLOWED BY DR. 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 Other No family history of adverse response to anesthesia Social History Smoking Status: Never smoker Second Hand Exposure: No; Do You Dip or Chew Tobacco: No; Hx Alcohol Use: Yes Alcohol type: wine Hx Substance Use: No Preferred Language: Thai Communication Ability: Effective Shelving Supervisor Required: No Beliefs That Will Affect Care: None marital status: / Current Living Situation: Alone current occupational status: retired Feels Safe at Home: Yes Assistive Devices: Glasses Allergies Allergies Allergy/AdvReac Type Severity Reaction Status Date / Time cephalexin Allergy Severe RASH Verified 07/20/21 12:08 SWELLING OF EYE LIDS Penicillins Allergy Severe HIVES Verified 07/20/21 12:08 Home Meds Home Medications Medication Instructions Recorded Confirmed aspirin 81 mg tablet,delayed 81 mg PO QPM 07/25/18 07/20/21 release (Lo Low Dose Aspirin) calcium carbonate 600 mg-vitamin 1 tab PO BID 07/25/18 07/20/21 D3 20 mcg (800 unit) chewable tablet (Caltrate 600 plus D) levothyroxine 88 mcg tablet 88 mcg PO QAM 07/25/18 07/20/21 multivitamin 1 tab PO DAILY 07/25/18 07/20/21 phenytoin sodium extended 100 mg 200 mg PO Q OTHER DAY 07/25/18 07/20/21 capsule phenytoin sodium extended 100 mg 300 mg PO Q OTHER DAY 07/25/18 07/20/21 capsule (Dilantin Extended) amlodipine 5 mg tablet 5 mg PO QAM 07/19/21 07/20/21 carvedilol 3.125 mg tablet 3.125 mg PO BID 07/19/21 07/20/21 hydrochlorothiazide 25 mg tablet 25 mg PO QAM 07/19/21 07/20/21 losartan 50 mg tablet 50 mg PO QAM 07/19/21 07/20/21 potassium chloride 10 mEq 10 meq PO BID 07/19/21 07/20/21 capsule,extended release Results & Data (ED) Vital Signs Vital Signs - 24 hr 08/16/22 15:04 08/16/22 17:05 08/16/22 17:05 Temperature 36.7 C Temperature Source Temporal Artery Scan Pulse Rate 97 H Pulse Rate [Apical] 99 H Pulse Rate from SpO2 Sensor Respiratory Rate 16 20 Respiratory Effort / Characteristics Non-Labored Spontaneous Respiratory Depth Normal Respiratory Pattern Regular Blood Pressure 217/140 H Blood Pressure [Right Arm] 220/117 H Blood Pressure Mean 165 Blood Pressure Mean [Right Arm] 151 Blood Pressure Position Sitting Pulse Oximetry 98 97 Oxygen Delivery Method Room Air Room Air Room Air Sepsis Recent Fever Within 48 Hours No Sepsis New/Unexplained Change in Mental Status No Sepsis Action Taken by Nursing No Action Required 08/16/22 17:15 08/16/22 17:15 08/16/22 17:30 Temperature Temperature Source Pulse Rate 90 Pulse Rate [Apical] Pulse Rate from SpO2 Sensor 88 Respiratory Rate 13 Respiratory Effort / Characteristics Respiratory Depth Respiratory Pattern Blood Pressure 218/129 H 208/110 H Blood Pressure [Right Arm] Blood Pressure Mean 157 154 Blood Pressure Mean [Right Arm] Blood Pressure Position Pulse Oximetry 97 Oxygen Delivery Method Room Air Sepsis Recent Fever Within 48 Hours Sepsis New/Unexplained Change in Mental Status Sepsis Action Taken by Nursing 08/16/22 17:30 08/16/22 17:03 08/16/22 17:59 Temperature Temperature Source Pulse Rate 90 91 H 75 Pulse Rate [Apical] Pulse Rate from SpO2 Sensor 83 76 Respiratory Rate 15 14 Respiratory Effort / Characteristics Respiratory Depth Respiratory Pattern Blood Pressure Blood Pressure [Right Arm] Blood Pressure Mean Blood Pressure Mean [Right Arm] Blood Pressure Position Pulse Oximetry 97 97 Oxygen Delivery Method Room Air Room Air Sepsis Recent Fever Within 48 Hours Sepsis New/Unexplained Change in Mental Status Sepsis Action Taken by Nursing 08/16/22 18:00 08/16/22 18:00 08/16/22 18:28 Temperature Temperature Source Pulse Rate 78 Pulse Rate [Apical] Pulse Rate from SpO2 Sensor 77 76 Respiratory Rate 14 Respiratory Effort / Characteristics Respiratory Depth Respiratory Pattern Blood Pressure 176/104 H Blood Pressure [Right Arm] Blood Pressure Mean 146 Blood Pressure Mean [Right Arm] Blood Pressure Position Pulse Oximetry 94 97 Oxygen Delivery Method Room Air Room Air Sepsis Recent Fever Within 48 Hours Sepsis New/Unexplained Change in Mental Status Sepsis Action Taken by Nursing 08/16/22 18:30 08/16/22 18:30 Temperature Temperature Source Pulse Rate 78 Pulse Rate [Apical] Pulse Rate from SpO2 Sensor 78 Respiratory Rate 16 Respiratory Effort / Characteristics Respiratory Depth Respiratory Pattern Blood Pressure 169/97 H Blood Pressure [Right Arm] Blood Pressure Mean 146 Blood Pressure Mean [Right Arm] Blood Pressure Position Pulse Oximetry 96 Oxygen Delivery Method Room Air Sepsis Recent Fever Within 48 Hours Sepsis New/Unexplained Change in Mental Status Sepsis Action Taken by Nursing Laboratory Data 08/16/22 15:10 08/16/22 15:10 Lab Results 08/16/22 08/16/22 08/16/22 Range/Units 15:10 15:10 15:10 WBC 7.49 (4.8-10.8) K/ul RBC 4.68 (4.20-5.40) M/uL Hgb 15.8 (12.0-16.0) g/dl Hct 44.6 (37.0-47.0) % MCV 95.3 (80.0-100.0) fL MCH 33.8 (25.0-34.0) pg MCHC 35.4 (32.0-36.0) g/dL RDW Std Deviation 44.5 (36.4-46.3) fL RDW Coeff of Abdiel 12.6 (11.5-14.5) % Plt Count 246 (130-400) K/uL MPV 9.2 L (9.4-12.4) fL PT Cancelled INR Cancelled APTT Cancelled PTT Ratio Cancelled Sodium 133 L (136-145) mmol/L Potassium 3.6 (3.5-5.1) mmol/L Chloride 95 L (98-107) mmol/L Carbon Dioxide 28 (21-32) mmol/L Anion Gap 10 (3-11) BUN 16 (6-23) mg/dl Creatinine 0.69 (0.6-1.2) mg/dl Est Cr Clr Drug Dosing 53.8 ml/min Est GFR ( Amer) 95.3 ml/min Est GFR (Non-Af Amer) 82.2 ml/min BUN/Creatinine Ratio 23.2 H (10-20) Glucose 105 H (70-99(Fasting)) mg/dl Calcium 9.8 (8.6-10.3) mg/dl Magnesium 1.8 (1.7-2.4) mg/dl Total Bilirubin 0.5 (0.2-1.0) mg/dl AST 32 (13-39) U/L ALT 29 (7-52) U/L Alkaline Phosphatase 100 (34-104) U/L Total Protein 7.6 (6.0-8.3) gm/dl Albumin 4.7 (3.4-5.0) gm/dl Globulin 2.9 (2.5-4.0) gm/dl Albumin/Globulin Ratio 1.6 (0.9-2) Triglycerides 155 H (0-150) mg/dl Cholesterol 208 H (0-200) mg/dl LDL Cholesterol Direct 106 mg/dl HDL Cholesterol 71 mg/dl SARS-CoV-2, RNA, NAAT (NEGATIVE) 08/16/22 08/16/22 Range/Units 17:30 18:32 WBC (4.8-10.8) K/ul RBC (4.20-5.40) M/uL Hgb (12.0-16.0) g/dl Hct (37.0-47.0) % MCV (80.0-100.0) fL MCH (25.0-34.0) pg MCHC (32.0-36.0) g/dL RDW Std Deviation (36.4-46.3) fL RDW Coeff of Abdiel (11.5-14.5) % Plt Count (130-400) K/uL MPV (9.4-12.4) fL PT 11.4 INR 1.0 APTT 28.4 PTT Ratio 1.0 Sodium (136-145) mmol/L Potassium (3.5-5.1) mmol/L Chloride (98-107) mmol/L Carbon Dioxide (21-32) mmol/L Anion Gap (3-11) BUN (6-23) mg/dl Creatinine (0.6-1.2) mg/dl Est Cr Clr Drug Dosing ml/min Est GFR ( Amer) ml/min Est GFR (Non-Af Amer) ml/min BUN/Creatinine Ratio (10-20) Glucose (70-99(Fasting)) mg/dl Calcium (8.6-10.3) mg/dl Magnesium (1.7-2.4) mg/dl Total Bilirubin (0.2-1.0) mg/dl AST (13-39) U/L ALT (7-52) U/L Alkaline Phosphatase (34-104) U/L Total Protein (6.0-8.3) gm/dl Albumin (3.4-5.0) gm/dl Globulin (2.5-4.0) gm/dl Albumin/Globulin Ratio (0.9-2) Triglycerides (0-150) mg/dl Cholesterol (0-200) mg/dl LDL Cholesterol Direct mg/dl HDL Cholesterol mg/dl SARS-CoV-2, RNA, NAAT NEGATIVE (NEGATIVE) Administered Medications Discontinued Medications Ioversol (Optiray 320 500ml) 109 ml IV ONCE ONE Stop: 08/16/22 18:15 Last Admin: 08/16/22 18:15 Dose: 109 ml Documented By: ALTA Labetalol HCl (Labetalol Hcl Iv 5 Mg/Ml 20ml) 10 mg IV NOW STA Stop: 08/16/22 17:19 Last Admin: 08/16/22 17:35 Dose: 10 mg Documented By: SKYLER Co-signed By: TBS Imaging Data Radiologist's Impression: Chest X-Ray 08/16/22 15:10 XR chest 1V not portable CLINICAL HISTORY: stroke alert TECHNIQUE: Single frontal radiograph of the chest was obtained. Comparison: Comparison is made to chest radiograph 05/27/2020 FINDINGS: No lines and tubes are seen. The cardiomediastinal silhouette is normal. The lungs are clear. No evidence of pleural effusion or pneumothorax. IMPRESSION: No acute chest disease. ACT 112: Negative or not required by law. Electronically signed by: Manav Griffiths M.D. 08/16/2022 4:[address] 08/16/22 15:10 CT SCAN OF THE BRAIN WITHOUT IV CONTRAST CLINICAL HISTORY: Neurological deficit. Stroke like symptoms. COMPARISON STUDY: CT of the brain dated 07/25/2018. MRI of the brain dated 07/25/2018. TECHNIQUE: Unenhanced axial CT scan of the brain is performed from the vertex to the skull base. A dose lowering technique was utilized adhering to the principles of ALARA. CT DOSE: 547.75 mGy.cm FINDINGS: Brain parenchyma: There is age-related involutional change noting moderate subcortical and periventricular microangiopathic disease. There is no hemorrhage, mass effect, or evidence of acute territorial ischemia by CT criteria. Chronic lacunar infarcts are noted in both cerebellar hemispheres. Ambrocio-white matter differentiation is preserved. No extra-axial fluid collection is seen. Ventricles, sulci, cisterns: Prominent secondary to involutional change. Intracranial vasculature: There is atherosclerotic calcification of the cavernous carotid and vertebral arteries. Calvarium: Unremarkable. Sinuses and mastoids: The visualized paranasal sinuses are clear. The mastoid air cells are well pneumatized. Orbits: The bony orbits are grossly intact. There are bilateral ocular lens implants. IMPRESSION: There is no hemorrhage, mass effect, or evidence of acute t erritorial ischemia by CT criteria. ACT 112: Negative or not required by law. Electronically signed by: Walter Bonner M.D. 08/16/2022 4:39 PM Head CTA 08/16/22 17:15 CT angio neck with con, CT angio head w con CLINICAL HISTORY: R vision loss TECHNIQUE: CT angiography of the head and neck was performed following intravenous administration of iodinated contrast. Coronal and sagittal MIPS were obtained from the axial data set and were submitted for review. Automated dose lowering techniques and/or adjustment according to patient size were utilized for this examination. All measurements were calculated based on NASCET criteria. CT DOSE: 393.06 mGy.cm Comparison: Comparison is made to CT neck 07/25/2018 FINDINGS: Lungs and soft tissues are unremarkable. CTA Neck: A 3 vessel aortic arch is shown. There is no significant a therosclerotic plaque in the aortic arch or the origins of the innominate, left common carotid, and left subclavian arteries. The common carotid, external carotid, cervical segments of the internal carotid arteries, and the cervical segments of the vertebral arteries are patent without hemodynamically significant stenosis. The vertebral arteries are codominant. CTA Head: The anterior and posterior cerebral circulations are patent. There is narrowing of the right posterior cerebral artery near its origin. IMPRESSION: 1. No acute intracranial hemorrhage, evidence of acute territorial infarction, or other acute intracranial disease process. 2. No occlusion, hemodynamically significant stenosis, or dissection in the major cervical arteries. 3. Narrowing of the right posterior cerebral artery which is unchanged from prior exam. Assessment of stenosis of the internal carotid arteries is based on NASCET criteria. ACT 112: Negative or not required by law. Electronically signed by: Manav Griffiths M.D. 08/16/2022 6:33 PM Neck CTA 08/16/22 17:15 CT angio neck with con, CT angio head w con CLINICAL HISTORY: R vision loss TECHNIQUE: CT angiography of the head and neck was performed following intravenous administration of iodinated contrast. Coronal and sagittal MIPS were obtained from the axial data set and were submitted for review. Automated dose lowering techniques and/or adjustment according to patient size were utilized for this examination. All measurements were calculated based on NASCET criteria. CT DOSE: 393.06 mGy.cm Comparison: Comparison is made to CT neck 07/25/2018 FINDINGS: Lungs and soft tissues are unremarkable. CTA Neck: A 3 vessel aortic arch is shown. There is no significant atherosclerotic plaque in the aortic arch or the origins of the innominate, left common carotid, and left subclavian arteries. The common carotid, external carotid, cervical segments of the internal carotid arteries, and the cervical segments of the vertebral arteries are patent without hemodynamically significant stenosis. The vertebral arteries are codominant. CTA Head: The anterior and posterior cerebral circulations are patent. There is narrowing of the right posterior cerebral artery near its origin. IMPRESSION: 1. No acute intracranial hemorrhage, evidence of acute territorial infarction, or other acute intracranial disease process. 2. No occlusion, hemodynamically significant stenosis, or dissection in the major cervical arteries. 3. Narrowing of the right posterior cerebral artery which is unchanged from prior exam. Assessment of stenosis of the internal carotid arteries is based on NASCET criteria. ACT 112: Negative or not required by law. Electronically signed by: Manav Griffiths M.D. 08/16/2022 6:33 PM Discharge Plan Visit Data Chief Complaint: Hypertension Stated Complaint: HIGH BP, DOCTOR REFERRED ED Provider: Tim Rubin Discharge Problem: BRAO (branch retinal artery occlusion), Hypertensive urgency Patient Disposition: Being Evaluated by Hospitalist Condition: Good Forms Stand Alone Forms: My [facility] exurbe cosmetics Prescriptions Prescriptions: No Action multivitamin Tablet 1 tab PO DAILY phenytoin sodium extended [Dilantin Extended] 100 mg Capsule 300 mg PO Q OTHER DAY Rx Instructions: Alternates 300mg and 200mg at HS aspirin [Lo Low Dose Aspirin] 81 mg Tablet,Delayed Release (Dr/Ec) 81 mg PO QPM Patient Comments: TAKES DAILY AT NOON levothyroxine 88 mcg tablet 88 mcg PO QAM Caltrate 600 plus D 600 mg (1,500 mg)-800 unit Tablet,Chewable 1 tab PO BID phenytoin sodium extended 100 mg capsule 200 mg PO Q OTHER DAY Rx Instructions: Alternates 300mg and 200mg at HS potassium chloride 10 mEq Capsule, Extended Release 10 meq PO BID amlodipine 5 mg Tablet 5 mg PO QAM carvedilol 3.125 mg Tablet 3.125 mg PO BID hydrochlorothiazide 25 mg Tablet 25 mg PO QAM losartan 50 mg tablet 50 mg PO QAM Referrals Referrals: Cari Page MD [Primary Care Provider] -
[2022-08-16 17:28] LABS: Hematocrit (blood only) 44.6 % (37.0-47.0); Hemoglobin 15.8 g/dl (12.0-16.0); Mean Corpuscular Hemoglobin 33.8 pg (25.0-34.0); Mean Corpuscular Hgb Conc 35.4 g/dL (32.0-36.0); Mean Corpuscular Volume 95.3 fL (80.0-100.0); Mean Platelet Volume 9.2 fL (9.4-12.4); Platelet Count 246 K/uL (130-400); RDW Coefficient of Variation 12.6 % (11.5-14.5); RDW Standard Deviation 44.5 fL (36.4-46.3); Red Blood Count 4.68 M/uL (4.20-5.40); White Blood Count 7.49 K/ul (4.8-10.8)
[2022-08-16 17:44] LABS: Albumin Globulin Ratio 1.6 (0.9-2); Albumin Level 4.7 gm/dl (3.4-5.0); BUN Creatinine Ratio 23.2 (10-20); Bilirubin,Total 0.5 mg/dl (0.2-1.0); Calcium 9.8 mg/dl (8.6-10.3); Creatinine Clr Calc Pharmacy 53.8 ml/min; Est GFR (African American) 95.3 ml/min; Est GFR (Non-African American) 82.2 ml/min; Globulin 2.9 gm/dl (2.5-4.0); Magnesium 1.8 mg/dl (1.7-2.4); Potassium 3.6 mmol/L (3.5-5.1); Total Protein 7.6 gm/dl (6.0-8.3)
[2022-08-16] MEDS ORDERED: OPTIRAY 320 500ml IV ONE (18:14)
--- NOTE | 2022-08-16 18:35 | CT Scan Report ---
CT angio neck with con, CT angio head w con CLINICAL HISTORY: R vision loss TECHNIQUE: CT angiography of the head and neck was performed following intravenous administration of iodinated contrast. Coronal and sagittal MIPS were obtained from the axial data set and were submitte d for review. Automated dose lowering techniques and/or adjustment according to patient size were ut ilized for this examination. All measurements were calculated based on NASCET criteria. CT DOSE: 393.06 mGy.cm Comparison: Comparison is made to CT neck 07/25/2018 FINDINGS: Lungs and soft tissues are unremarkable. CTA Neck: A 3 vessel aortic arch is shown. There is no significant atherosclerotic plaque in the aor tic arch or the origins of the innominate, left common carotid, and left subclavian arteries. The co mmon carotid, external carotid, cervical segments of the internal carotid arteries, and the cervical segments of the vertebral arteries are patent without hemodynamically significant stenosis. The verte bral arteries are codominant. CTA Head: The anterior and posterior cerebral circulations are patent. There is narrowing of the rig ht posterior cerebral artery near its origin. IMPRESSION: 1. No acute intracranial hemorrhage, evidence of acute territorial infarction, or other acute intrac ranial disease process. 2. No occlusion, hemodynamically significant stenosis, or dissection in the major cervical arteries. 3. Narrowing of the right posterior cerebral artery which is unchanged from prior exam. Assessment of stenosis of the internal carotid arteries is based on NASCET criteria. ACT 112: Negative or not required by law. Electronically signed by: Manav Griffiths M.D. 08/16/2022 6:33 PM
[2022-08-16 19:22] LABS: Partial Thromboplastin Time 28.4 Seconds (21.0-31.0); Prothrombin Time 11.4 Seconds (9.0-12.0)
--- NOTE | 2022-08-16 19:50 | History & Physical Report ---
Date of Service August 16, 2022 Assessment & Plan (1) Hypertensive urgency: Plan: BP improved with Labetalol, still elevated CT head neg for acute stroke, pt presented with concern for possible retinal artery occlusion, possible cva CTA head and neck negative Will defer MRI, MRA to neurology neurology consulted, appreciate input, will follow recs BP control Present on Admission?: Yes (2) BRAO (branch retinal artery occlusion): Plan: suspected, not seen on CTA though I'm not sure if CTA could miss this finding defer further imaging to neuro f/u echo, tele monitoring hold off on carotid US as CTA neck was unrevealing continue antiplatelet therapy, statin therapy Present on Admission?: Yes (3) DVT prophylaxis: Plan: Enoxoparin SCDs Present on Admission?: Yes (4) Hypercholesteremia: Plan: suboptimally controlled high dose statin, heart healthy diet Present on Admission?: Yes (5) HTN (hypertension): Plan: uncontrolled at presentation typically well controlled on current regimen, continue same no recent changes to medications prn IV Labetalol Present on Admission?: Yes (6) Hypothyroidism: Plan: f/u TSH continue levothyroxine 88 mcg daily (7) Seizure disorder: Plan: stable, no recent seizure activity continue home regimen Admission and Anticipated Discharge Date Admission Date: admission 08/16 anticipated d/c 08/17 History of Present Illness Chief Complaint: hypertensive urgency, suspected retinal artery occlusion Primary Care Provider: Cari Page MD Ms. Lema is an 82 year old female with pmhx per chart (confirmed with patient) of prior CVA (2019, no residual deficit), HTN, HLP, hypothyroidism, sz d/o on AED, and migraine headache. She was in her usual state of health. Last night she noticed a visual field deficit. Upon testing herself (wiggling her fingers) she detected a loss of vision in the lower right quadrant. She went to the eye doctor today who tested her and initially didn't find any abnormality. On repeat testing the doctor thought there could be a retinal artery occlusion. Per the patient the doctor was not sure. The then checked her BP and noted it was uncontrolled and recommended that the patient seek ED evaluation. Ms. Lema denies any associated STRINGER, dizziness, lightheadedness, difficulty with word finding, expressive or receptive aphasia, blurred or double vision, focal weakness, numbness, tingling, or incontinence. She may have had some intermittent mild pain in the back of her neck on the right side that resolved without intervention last night. She did not feel it was significant. She further denies any current or recent malaise, fatigue, f/c/n/v, CP, palpitations, sob, dyspnea, cough, congestion, abdominal pain, diarrhea, or dysuria. She currently has urinary urgency. She reports BP is typically well controlled on her current regimen. ED Course: VS notable for SBP up to 220, DBP 140, otherwise stable. cmp, bmp unremarkable. total cholesterol and triglycerides minimall elevated at [address] head, CTA head and neck, and Chest xray are all negative for acute pathology Pt given IV labetalol 10 mg IV and transferred to hospitalist service for hypertensive urgency. Allergies Allergy/AdvReac Type Severity Reaction Status Date / Time cephalexin Allergy Severe RASH Verified 07/20/21 12:08 SWELLING OF EYE LIDS Penicillins Allergy Severe HIVES Verified 07/20/21 12:08 Home Medications Medication Instructions Recorded Confirmed Type aspirin 81 mg tablet,delayed 81 mg PO QPM 07/25/18 08/16/22 History release (Lo Low Dose Aspirin) calcium carbonate 600 mg-vitamin 1 tab PO DAILY 07/25/18 08/16/22 History D3 20 mcg (800 unit) chewable tablet (Caltrate 600 plus D) levothyroxine 88 mcg tablet 88 mcg PO QAM 07/25/18 08/16/22 History multivitamin 1 tab PO DAILY 07/25/18 08/16/22 History phenytoin sodium extended 100 mg 200 mg PO Q OTHER DAY 07/25/18 08/16/22 History capsule phenytoin sodium extended 100 mg 300 mg PO Q OTHER DAY 07/25/18 08/16/22 History capsule (Dilantin Extended) amlodipine 5 mg tablet 5 mg PO QAM 07/19/21 08/16/22 History carvedilol 3.125 mg tablet 3.125 mg PO BID 07/19/21 08/16/22 History hydrochlorothiazide 25 mg tablet 25 mg PO QAM 07/19/21 08/16/22 History losartan 50 mg tablet 50 mg PO QAM 07/19/21 08/16/22 History potassium chloride 10 mEq 10 meq PO BID 07/19/21 08/16/22 History capsule,extended release Past Med/Surg History Medical History Cardiac murmur Elevated cholesterol COULD NOT TOLERATE LIPITOR HTN (hypertension) Hx of iron deficiency anemia A CHILD Hx of migraines Hypothyroidism Irregular heart beat DX ON HOLTER MONITOR (FOLLOWED BY DR. 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 No family history of adverse response to anesthesia Social History Smoking Status: Never smoker Second Hand Exposure: No; Do You Dip or Chew Tobacco: No; Hx Alcohol Use: Yes Alcohol type: wine Hx Substance Use: No Preferred Language: Lithuanian Communication Ability: Effective Revenue Agent Required: No Beliefs That Will Affect Care: None marital status: / Current Living Situation: Alone current occupational status: retired Feels Safe at Home: Yes Assistive Devices: Glasses Review of Systems Review of Systems: All systems reviewed & are unremarkable except as noted in Subjective Physical Exam Physical Exam: General: NAD, well nourished, non-toxic appearing Head: NC AT Eyes: PERRL, EOMI, anicteric sclera, no conjunctival injection Nose: nares patent Mouth: MMM Neck: supple, trachea midline CV: RRR S1 S2 Pulm: CTA b/l Abd/GI: + BS, soft, NT, ND, no guarding : no rutledge Ext: no pretibial edema MSK: normal bulk and tone Neuro: visual field defect lower right quadrant right eye Psych: pleasant mood and affect Skin: visible skin is warm, dry, and without rash. Pt not fully undressed for exam. Results & Data Results & Data Vital Signs (Past 12 Hours) Vital Signs Temp Pulse Pulse Resp BP BP Pulse Ox 08/16/22 18:30 78 16 96 08/16/22 18:30 169/97 H 08/16/22 18:28 97 08/16/22 18:00 78 14 94 08/16/22 18:00 176/104 H 08/16/22 17:59 75 14 97 08/16/22 17:03 91 H 08/16/22 17:30 90 15 97 08/16/22 17:30 208/110 H 08/16/22 17:15 90 13 97 08/16/22 17:15 218/129 H 08/16/22 17:05 08/16/22 17:05 99 H 20 220/117 H 97 08/16/22 15:04 36.7 C 97 H 16 217/140 H 98 O2 Del Method 08/16/22 18:30 Room Air 08/16/22 18:30 08/16/22 18:28 Room Air 08/16/22 18:00 Room Air 08/16/22 18:00 08/16/22 17:59 Room Air 08/16/22 17:03 08/16/22 17:30 Room Air 08/16/22 17:30 08/16/22 17:15 Room Air 08/16/22 17:15 08/16/22 17:05 Room Air 08/16/22 17:05 Room Air 08/16/22 15:04 Room Air Laboratory Results Short CBC 08/16/22 Range/Units 15:10 WBC 7.49 (4.8-10.8) K/ul Hgb 15.8 (12.0-16.0) g/dl Hct 44.6 (37.0-47.0) % Plt Count 246 (130-400) K/uL BMP 08/16/22 15:10 Sodium 133 L Potassium 3.6 Chloride 95 L Carbon Dioxide 28 BUN 16 Creatinine 0.69 Glucose 105 H Calcium 9.8 Liver Function 08/16/22 Range/Units 15:10 Total Bilirubin 0.5 (0.2-1.0) mg/dl AST 32 (13-39) U/L ALT 29 (7-52) U/L Alkaline Phosphatase 100 (34-104) U/L Albumin 4.7 (3.4-5.0) gm/dl Diagnostic Findings Chest X-Ray 08/16/22 15:10 XR chest 1V not portable FINDINGS: No lines and tubes are seen. The cardiomediastinal silhouette is normal. The lungs are clear. No evidence of pleural effusion or pneumothorax. IMPRESSION: No acute chest disease. Head CT 08/16/22 15:10 CT SCAN OF THE BRAIN WITHOUT IV CONTRAST FINDINGS: Brain parenchyma: There is age-related involutional change noting moderate subcortical and periventricular microangiopathic disease. There is no hemorrhage, mass effect, or evidence of acute territorial ischemia by CT criteria. Chronic lacunar infarcts are noted in both cerebellar hemispheres. Ambrocio-white matter differentiation is preserved. No extra-axial fluid collection is seen. Ventricles, sulci, cisterns: Prominent secondary to involutional change. Intracranial vasculature: There is atherosclerotic calcification of the cavernous carotid and vertebral arteries. Calvarium: Unremarkable. Sinuses and mastoids: The visualized paranasal sinuses are clear. The mastoid air cells are well pneumatized. Orbits: The bony orbits are grossly intact. There are bilateral ocular lens implants. IMPRESSION: There is no hemorrhage, mass effect, or evidence of acute territorial ischemia by CT criteria. Head CTA 08/16/22 17:15 CT angio neck with con, CT angio head w con FINDINGS: Lungs and soft tissues are unremarkable. CTA Neck: A 3 vessel aortic arch is shown. There is no significant atherosclerotic plaque in the aortic arch or the origins of the innominate, left common carotid, and left subclavian arteries. The common carotid, external carotid, cervical segments of the internal carotid arteries, and the cervical segments of the vertebral arteries are patent without hemodynamically significant stenosis. The vertebral arteries are codominant. CTA Head: The anterior and posterior cerebral circulations are patent. There is narrowing of the right posterior cerebral artery near its origin. IMPRESSION: 1. No acute intracranial hemorrhage, evidence of acute territorial infarction, or other acute intracranial disease process. 2. No occlusion, hemodynamically significant stenosis, or dissection in the major cervical arteries. 3. Narrowing of the right posterior cerebral artery which is unchanged from prior exam. Assessment of stenosis of the internal carotid arteries is based on NASCET criteria. Neck CTA 08/16/22 17:15 CT angio neck with con, CT angio head w con FINDINGS: Lungs and soft tissues are unremarkable. CTA Neck: A 3 vessel aortic arch is shown. There is no significant atherosclerotic plaque in the aortic arch or the origins of the innominate, left common carotid, and left subclavian arteries. The common carotid, external carotid, cervical segments of the internal carotid arteries, and the cervical segments of the vertebral arteries are patent without hemodynamically significant stenosis. The vertebral arteries are codominant. CTA Head: The anterior and posterior cerebral circulations are patent. There is narrowing of the right posterior cerebral artery near its origin. IMPRESSION: 1. No acute intracranial hemorrhage, evidence of acute territorial infarction, or other acute intracranial disease process. 2. No occlusion, hemodynamically significant stenosis, or dissection in the major cervical arteries. 3. Narrowing of the right posterior cerebral artery which is unchanged from prior exam. Assessment of stenosis of the internal carotid arteries is based on NASCET criteria. Code Status & VTE Plan Code Status full code VTE Prophylaxis Plan VTE Prophylaxis will be ordered: Yes (2) BRAO (branch retinal artery occlusion) Laterality: right Qualified Code(s): H34.231 - Retinal artery branch occlusion, right eye (5) HTN (hypertension) Hypertension type: unspecified Qualified Code(s): I10 - Essential (primary) hypertension
[2022-08-16] MEDS ORDERED: ACETAMINOPHEN 325 MG TAB PO PRN (23:14)
[2022-08-16] MEDS ORDERED: ALUMINUM/MAGNESIUM SUSP 30 ML UDC PO PRN (23:14)
[2022-08-16] MEDS ORDERED: PHENYTOIN SODIUM ER 100 MG CAP PO SCH ×2 (23:14)
[2022-08-16] MEDS ORDERED: PHARMACIST DISCHARGE MED REC CONSULT PRN (23:14)
[2022-08-16] MEDS ORDERED: ASPIRIN 81 MG ECTAB PO SCH (23:14)
[2022-08-16] MEDS ORDERED: POLYETHYLENE (MIRALAX) 17 GM PACK PO PRN (23:14)
[2022-08-16] MEDS ORDERED: ONDANSETRON INJ 2 MG/ML 2 ML VIAL IV PRN (23:14)
[2022-08-16] MEDS ORDERED: MAGNESIUM HYDROXIDE SUSP 30 ML UDC PO PRN (23:14)
[2022-08-16] MEDS: carvediloL 3.125 MG TAB PO SCH (23:39)
[2022-08-16] MEDS: POTASSIUM CHLORIDE 10 MEQ TABCR PO SCH (23:39)
[2022-08-17 06:16] LABS: Basophils # (auto) 0.05 K/uL (0-0.2); Basophils % (auto) 0.8 %; Eosinophils % (auto) 1.7 %; Hematocrit (blood only) 44.2 % (37.0-47.0); Hemoglobin 15.4 g/dl (12.0-16.0); Immature Granulocytes # (auto) 0.02 K/uL (0.01-0.20); Immature Granulocytes % (auto) 0.3 %; Lymphocytes # (auto) 2.06 K/uL (1.2-3.4); Lymphocytes % (auto) 34.2 %; Mean Corpuscular Hemoglobin 33.5 pg (25.0-34.0); Mean Corpuscular Hgb Conc 34.8 g/dL (32.0-36.0); Mean Corpuscular Volume 96.1 fL (80.0-100.0); Mean Platelet Volume 9.1 fL (9.4-12.4); Monocytes # (auto) 0.64 K/uL (0.11-0.59); Monocytes % (auto) 10.6 %; Neutrophils # (auto) 3.15 K/uL (1.40-6.50); Neutrophils % (auto) 52.4 %; Platelet Count 227 K/uL (130-400); RDW Coefficient of Variation 12.9 % (11.5-14.5); White Blood Count 6.02 K/ul (4.8-10.8)
[2022-08-17] MEDS ORDERED: LEVOTHYROXINE SODIUM 88 MCG TABLET PO SCH (06:30)
[2022-08-17 06:42] LABS: Anion Gap 8 (3-11); BUN Creatinine Ratio 21.7 (10-20); Blood Urea Nitrogen 15 mg/dl (6-23); C Reactive Protein < 0.50 mg/dl (0-0.5); Calcium 9.7 mg/dl (8.6-10.3); Carbon Dioxide 30 mmol/L (21-32); Chloride 96 mmol/L (98-107); Chol HDL Ratio 2.9 (0-5); Cholesterol 192 mg/dl (0-200); Creatinine Clr Calc Pharmacy 53.8 ml/min; Est GFR (African American) 95.3 ml/min; Est GFR (Non-African American) 82.2 ml/min; Glucose 99 mg/dl (70-99(Fasting)); HDL Cholesterol 66 mg/dl; LDL Cholesterol Calculated 103 mg/dl; Potassium 4.5 mmol/L (3.5-5.1); Sodium 134 mmol/L (136-145); Triglycerides 116 mg/dl (0-150); VLDL Cholesterol 23 mg/dl (0-30)
[2022-08-17 08:03] LABS: Estimated Average Glucose 103 mg/dl; Hemoglobin A1C 5.2 % (4.5-5.6)
[2022-08-17] MEDS: POTASSIUM CHLORIDE 10 MEQ TABCR PO SCH (08:47)
[2022-08-17] MEDS: carvediloL 3.125 MG TAB PO SCH (08:47)
[2022-08-17] MEDS ORDERED: hydroCHLOROthiazide 25 MG TAB PO SCH (09:00)
[2022-08-17] MEDS ORDERED: amLODIPine BESYLATE 5 MG TAB PO SCH (09:00)
[2022-08-17] MEDS ORDERED: LOSARTAN POTASSIUM 50 MG TAB PO SCH (09:00)
[2022-08-17] MEDS ORDERED: MULTIVITAMIN TAB PO SCH (09:00)
[2022-08-17] MEDS ORDERED: CALCIUM 600MG + VIT D 400 IU TAB PO SCH (09:00)
[2022-08-17] MEDS ORDERED: ENOXAPARIN INJ 40 MG/0.4 ML SYR SQ SCH (09:00)
[2022-08-17] MEDS ORDERED: CLOPIDOGREL BISULFATE 75 MG TAB PO SCH (09:45)
--- NOTE | 2022-08-17 10:01 | Neurology Consultation ---
Date of Consultation August 17, 2022 Assessment & Plan (1) BRAO (branch retinal artery occlusion): (2) Hypertensive urgency: (3) Seizure disorder: Plan Patient has suffered a right eye branch retinal artery occlusion August 16 resulting in decreased vision in the right eye in the lower lateral quadrant. The rest of her neurologic examination is largely unremarkable with no focal findings meningeal signs, or cephalopathy. this was likely small vessel ischemia to a branch of the retinal artery to the right eye. Patient did have a small lacunar infarct in 2019 and has been on aspirin. CT angiography of the head neck is unremarkable. The patient had markedly elevated blood pressure ( both at the time of her small stroke in 2019 and yesterday) which is better controlled this morning. This puts her at great risk for small vessel ischemia. The patient has a history of seizure disorder in the and has been on phenytoin ever since. She is well controlled. Recommendations: 1. MRI of the brain to evaluate for small stroke and extent of small vessel ischemic disease compare to 2019. 2. Awaiting echocardiogram 3. consider regular dose statin or other cholesterol-lowering medication (she did have some myalgia to 1 statin in the past). 4. Control blood pressure as you are doing but avoid over control aiming for a mean arterial pressure of 95-100. 5. check a trough Dilantin level. 6. Add clopidogrel 75 milligrams to the 81 milligram aspirin tablet daily. Do these both together for 3 weeks, then discontinue the aspirin and remain on clopidogrel alone. 7. after discharge, follow up with Ophthalmology for formal visual moran and assessment. Overall, I spent a total of 75 minutes with this case including review of records, review of CT and MRI films, report generation, direct evaluation the patient at bedside, and discussion of the case with the patient and Dr. Garcia at bedside including differential diagnosis and treatment options. History of Present Illness Reason for Consultation: Patient is an 82-year-old, who I was asked to see at the request of Dayana Morley PA-C, for neurologic consultation regarding stroke Requesting Physician: Dayana Edward PA-C Attending Physician: Shanae Garcia MD History of Present Illness patient has a longstanding history of hypertension and a history of seizures ( 1 in 1980 and 1 in 1983 ). She has been on Dilantin ever since ( 200 milligrams daily alternating with 300 milligrams daily every other day ). She has had no seizures since 1983. she does have some history of dyslipidemia and myalgia on a statin in the past. In July of 2018 she had the onset of dysarthria and a right facial droop. CT scan of the head and CT angiography of the head neck were unremarkable. Echocardiogram was unremarkable. MRI of the brain revealed a 9 millimeter left centrum semiovale acute stroke. The patient recovered clinically and has been on 81 milligram aspirin tablet since. Patient woke up August 16 with decreased vision off to the right lower quadrant in the right eye. It was not present when she went to bed the night before. She ended up seeing her eye doctor and was told she had a right eye branch retinal artery occlusion. Her blood pressure was elevated and was sent to the emergency room. On August 16, at 15:04, the patient had a temperature of 36.7, pulse 97 regular, respiratory rate 16, blood pressure 217/140, and O2 saturation 98 percent. Her blood pressure remained elevated in the emergency room for quite awhile. On clinical examination she had decrease in vision in the right lower quadrant of the right eye and no other focal neurologic deficits were noted. CBC was unremarkable. Chem profile was unremarkable although glucose was 105. Triglyceride was [address] scan of the head was unremarkable. CT angiography of the head neck was remarkable only for some narrowing in the right posterior cerebral artery ( unchanged from July of 2016). I reviewed these films. Clinically she is unchanged from yesterday. Blood pressure is 130/65 this morning and hemoglobin A1c was 5.2. TSH was 3.7 And a sedimentation rate was 11. Allergies Allergy/AdvReac Type Severity Reaction Status Date / Time cephalexin Allergy Severe RASH Verified 07/20/21 12:08 SWELLING OF EYE LIDS Penicillins Allergy Severe HIVES Verified 07/20/21 12:08 Home Medications Medication Instructions Recorded Confirmed Type aspirin 81 mg tablet,delayed 81 mg PO QPM 07/25/18 08/16/22 History release (Lo Low Dose Aspirin) calcium carbonate 600 mg-vitamin 1 tab PO DAILY 07/25/18 08/16/22 History D3 20 mcg (800 unit) chewable tablet (Caltrate 600 plus D) levothyroxine 88 mcg tablet 88 mcg PO QAM 07/25/18 08/16/22 History multivitamin 1 tab PO DAILY 07/25/18 08/16/22 History phenytoin sodium extended 100 mg 200 mg PO Q OTHER DAY 07/25/18 08/16/22 History capsule phenytoin sodium extended 100 mg 300 mg PO Q OTHER DAY 07/25/18 08/16/22 History capsule (Dilantin Extended) amlodipine 5 mg tablet 5 mg PO QAM 07/19/21 08/16/22 History carvedilol 3.125 mg tablet 3.125 mg PO BID 07/19/21 08/16/22 History hydrochlorothiazide 25 mg tablet 25 mg PO QAM 07/19/21 08/16/22 History losartan 50 mg tablet 50 mg PO QAM 07/19/21 08/16/22 History potassium chloride 10 mEq 10 meq PO BID 07/19/21 08/16/22 History capsule,extended release Patient History Medical History Cardiac murmur Elevated cholesterol COULD NOT TOLERATE LIPITOR HTN (hypertension) Hx of iron deficiency anemia A CHILD Hx of migraines Hypothyroidism Irregular heart beat DX ON HOLTER MONITOR (FOLLOWED BY DR. 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 No family history of adverse response to anesthesia Social History Smoking Status: Former smoker Smoking End Date: 1971; Second Hand Exposure: No; Do You Dip or Chew Tobacco: No; Hx Alcohol Use: Yes Alcohol type: wine Hx Substance Use: No Preferred Language: Bulgarian Communication Ability: Effective 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 Beliefs That Will Affect Care: None marital status: / Current Living Situation: Alone current occupational status: retired Other Information That Helps Us Care for You: No Feels Safe at Home: Yes Safety Concerns: Feels Safe At This Time Assistive Devices: None Review of Systems Constitutional: no fever, no fatigue and no weakness Eyes: + worsening vision; no diplopia and no eye pain Ear, Nose, Mouth, Throat: no ear pain, no tinnitus, no hearing loss, no dizziness, no snoring, no hoarseness and no dysphagia Respiratory: no cough and no dyspnea Cardiovascular: no chest pain, no palpitations and no lightheadedness Gastrointestinal: no abdominal pain, no nausea and no vomiting Genitourinary: no dysuria, no urinary frequency and no urinary incontinence Musculoskeletal: no back pain, no neck pain, no radicular pain, no joint pain and no myalgia Integumentary: no rash and no lesions Neurologic: no gait abnormality, no localized weakness, no generalized weakness, no tingling, no numbness, no tremor(s), no abnormal movements, no headache(s), no abnormal speech, no confusion and no memory loss Psychiatric: no depression, no irritability, no anxiety, no difficulty concentrating, no confusion and no hallucinations Endocrine: no fatigue and no flushing Hematologic / Lymphatic: no easy bleeding and no easy bruising Allergy / Immunological: no urticaria and no problem reported Exam (Neuro) Physical Exam: The patient is right-handed. The patient is awake, alert, and attentive. Speech is normal without any aphasia or dysarthria. The patient can name objects, repeat phrases, and has normal spontaneous speech. Mentation and thought processes are intact, with orientation to person, place and time, and normal fund of knowledge. Attention and concentration are normal. Mood and affect are normal and appropriate. General appearance and grooming are normal. Short and long-term memory are intact. Pupils are 3 mm bilaterally and reactive to light. Extraocular eye muscles are intact without nystagmus. she has decrease vision in the right eye in the right lower quadrant There are no deficits to sensation in the face in all 3 distributions of the fifth cranial nerve bilaterally. Corneal reflexes are positive bilaterally. Facial strength and symmetry was normal bilaterally. Hearing seems normal bilaterally. Palate moves well without asymmetry. There is normal sternocleidomastoid and trapezius (shoulder shrug) strength bilaterally. Tongue is midline with good strength bilaterally. Neck has a full range of motion without discomfort. There are no cervical bruits bilaterally. There are no cranial or ocular bruits. Heart is without murmur. There is a regular rhythm and rate. Cervical, thoracic, and lumbar spine are nontender to palpation. Gait was not tested but stands sitting up in bed is. With outstretched arms there is no drift. There are no resting, postural, or action tremors. There is no ataxia with finger to nose testing. There is good facility in the hands. No other abnormal involuntary movements are noted. Motor strength is 5/5 diffusely in the arms bilaterally including deltoids, biceps, triceps, brachioradialis, wrist flexors and extensors, burn nurse, and intrinsic hand muscles. Motor strength is 5/5 diffusely in the legs bilaterally including hip flexors, quadriceps, hamstrings, gastrocnemius, tibialis anterior, tibialis posterior, and Peroneii muscles. Toe extensors are normal and there is good bulk in the extensor digitorum brevis muscles bilaterally. The limbs have good tone without rigidity or spasticity. There is no atrophy noted in the muscles. Muscle bulk is normal, there is no tenderness to palpation, no myotonia to percussion, and no fasciculations seen. Sensory examination is intact to touch and pin throughout all 4 limbs diffusely. Reflexes are 1/4 in the biceps, triceps, brachioradialis, quadriceps, and Achilles tendons bilaterally. There is no clonus bilaterally. Toes are downgoing with plantar stimulation bilaterally. Peripheral pulses are present and of normal quality distally in all 4 limbs. There is no peripheral edema noted in the limbs. Results & Data Vital Signs (Past 12 Hours) Vital Signs Temp Pulse Pulse Pulse Pulse Resp BP 08/17/22 07:40 36.6 C 67 12 130/60 08/17/22 02:43 36.6 C 73 18 147/85 H 08/16/22 23:03 87 08/16/22 23:48 36.6 C 89 20 159/95 H 08/16/22 22:00 70 151/91 H Pulse Ox O2 Del Method 08/17/22 07:40 97 Room Air 08/17/22 02:43 96 Room Air 08/16/22 23:03 08/16/22 23:48 96 Room Air 08/16/22 22:00 92 Room Air PG Care Time/CCT Total # of Minutes Spent Total Time Spent with Patient: Total time spent is greater than 50% in coordination of care (as documented) at patient's floor/unit and/or counseling patient: Coding Level of Care Code 27480 INT INP/OBS CARE 3/75MIN Diagnoses BRAO (branch retinal artery occlusion) H34.231 Laterality: right Hypertensive urgency I16.0 Seizure disorder G40.909 (1) BRAO (branch retinal artery occlusion) Laterality: right Qualified Code(s): H34.231 - Retinal artery branch occlusion, right eye
[2022-08-17] MEDS ORDERED: GADOBUTROL 7.5ML VIAL IV ONE (11:15)
--- NOTE | 2022-08-17 11:52 | Magnetic Resonance Report ---
MRI OF THE BRAIN WITHOUT AND WITH IV CONTRAST CLINICAL HISTORY: Rule out stroke. Visual deficits. COMPARISON STUDY: MRI of the brain July 25, [address] and CTA of the head August 16, 2022. TECHNIQUE: Utilizing a 1.5 Sarita magnet and dedicated coil, multiplanar, multiecho imaging of the br ain was performed pre and postcontrast administration. IV administration of 6 mL of Gadavist contras t was uneventful. FINDINGS: There are no foci of restricted diffusion to suggest acute infarct. No acute intracranial h emorrhage, midline shift or mass effect is present. Ventricular system is stable. Basal cisterns are patent. There are no extra-axial collections. Flow-voids for the major intracranial vessels are prese nt. There is no intracranial mass or pathologic enhancement. Multiple old infarcts within the cerebel lar hemispheres are again noted. The majority of these were present on previous MRI. There is an old infarct within the left centrum semiovale. White matter T2 hyperintense foci have slightly progressed . These favor small vessel disease. Gradient echo sequence demonstrates numerous small foci of suscep tibility artifact. Calvarial signal is normal. No orbital mass is identified. There is no evidence fo r sinusitis. No mastoid fluid. IMPRESSION: 1. No acute intracranial findings. 2. No intracranial mass or pathologic enhancement. 3. Multiple old infarcts, as described above. 4. Numerous small foci of susceptibility artifact on the gradient echo sequence. The findings could r eflect old blood products or amyloid deposition. ACT 112: Negative or not required by law. Electronically signed by: Pasha Armstrong M.D. 08/17/2022 11:50 AM
[2022-08-17] MEDS ORDERED: STROKE PATIENT DISCHARGE STA (12:46)
--- NOTE | 2022-08-17 12:47 | Discharge Summary ---
Date of Service August 17, 2022 Admission HPI Per Admitting Provider Ms. Lema is an 82 year old female with pmhx per chart (confirmed with patient) of prior CVA (2019, no residual deficit), HTN, HLP, hypothyroidism, sz d/o on AED, and migraine headache. She was in her usual state of health. Last night she noticed a visual field deficit. Upon testing herself (wiggling her fingers) she detected a loss of vision in the lower right quadrant. She went to the eye doctor today who tested her and initially didn't find any abnormality. On repeat testing the doctor thought there could be a retinal artery occlusion. Per the patient the doctor was not sure. The DrVenkatesh then checked her BP and noted it was uncontrolled and recommended that the patient seek ED evaluation. Ms. Lema denies any associated STRINGER, dizziness, lightheadedness, difficulty with word finding, expressive or receptive aphasia, blurred or double vision, focal weakness, numbness, tingling, or incontinence. She may have had some intermittent mild pain in the back of her neck on the right side that resolved without intervention last night. She did not feel it was significant. She further denies any current or recent malaise, fatigue, f/c/n/v, CP, palpitations, sob, dyspnea, cough, congestion, abdominal pain, diarrhea, or dysuria. She currently has urinary urgency. She reports BP is typically well controlled on her current regimen. ED Course: VS notable for SBP up to 220, DBP 140, otherwise stable. cmp, bmp unremarkable. total cholesterol and triglycerides minimall elevated at [address] head, CTA head and neck, and Chest xray are all negative for acute pathology Pt given IV labetalol 10 mg IV and transferred to hospitalist service for hypertensive urgency. Admission Exam Per Admitting Provider General:NAD, well nourished, non-toxic appearing Head:NC AT Eyes: PERRL, EOMI, anicteric sclera, no conjunctival injection Nose:nares patent Mouth:MMM Neck:supple, trachea midline CV:RRR S1 S2 Pulm:CTA b/l Abd/GI:+ BS, soft, NT, ND, no guarding :no rutledge Ext:no pretibial edema MSK:normal bulk and tone Neuro:visual field defect lower right quadrant right eye Psych:pleasant mood and affect Skin:visible skin is warm, dry, and without rash. Pt not fully undressed for exam. Principal Diagnosis Branch Retinal Artery Occlusion Hypertensive urgency Discharge Exam Constitutional + well hydrated; no acute distress Eyes PERRL, conjunctivae normal, anicteric sclerae Deficits in right temporal visual field ENMT external ear and nose normal, oropharynx normal Respiratory normal respiratory effort, lungs clear to auscultation Cardiovascular RRR, no murmur, no edema Gastrointestinal (Abdomen) normal bowel sounds, soft, nontender, no hepatosplenomegaly Musculoskeletal no cyanosis or clubbing, extremities motor strength 5/5 Neurologic PERRL, EOMI, accommodation nl, no face palsy, no dysarthria Psychiatric A+Ox3, euthymic affect Discharge Data Allergies Allergy/AdvReac Type Severity Reaction Status Date / Time cephalexin Allergy Severe RASH Verified 07/20/21 12:08 SWELLING OF EYE LIDS Penicillins Allergy Severe HIVES Verified 07/20/21 12:08 Consultations 08/16/22 18:55 ED Decision to Admit Stat 08/16/22 23:14 Consult Neurology Routine Ordered Studies 08/16/22 15:10 CT head/brain wo con Stat 08/16/22 17:15 CT angio head w con Stat CT angio neck with con Stat 08/17/22 09:22 MRI Brain [MR brain wo/w con] Stat Hospital Course (1) Hypertensive urgency: (2) BRAO (branch retinal artery occlusion): Patient had presented with right visual field deficit from Ophthal office that started 2 days ago On presentation, BP was elevated to 220/117 She got iv labetalol in ER and home antihypertensives continued CT head neg for acute stroke CTA head and neck negative MRI brain obtained today was negative for acute stroke but noted chronic infarcts. Patient reported history of stroke in the past TTE noted EF of 60-65%, mod comc LVH, GI DD, mild AV sclerosis, no ASD/interatrial shunt Lipid panel noted total cholesterol of 192, LDL of 103 TSH was 3.7 uIU/ml and ESR was 11. Possible Branch retinal artery occlusion Patient was evaluated by Neuro who recommended DAPT for 3 weeks, then plavix mon otherapy afterwards and restarting statin. Patient reported she had intolerance to atorvastatin in the past. After discussion with patient, she wants to try a different one. Started on rosuvastatin 5mg daily. Educated on possible side effects and need to follow up with PCP. Patient advised to follow up with Physicist Nuclear BP is currently normal on home meds only Continue home antihypertensives without change (3) Hypercholesteremia: (4) HTN (hypertension): (5) Hypothyroidism: Continue levothyroxine 88 mcg daily (6) Seizure disorder: Stable, no recent seizure activity Continue home regimen Total Time Total Time Spent Total Time Spent (In Minutes): 50 Total Time Includes: Examination of the Patient, Discharge Planning, Medication Reconciliation and Communication With Other Providers Discharge Plan Discharge Items Patient Disposition: Home - Self-Care Reason For Visit: Visual deficits Discharge Diagnosis: Branch Retinal Artery Occlusion Hypertensive urgency Condition on Discharge: Good Activity: Resume your previous activity Non-emergency contact: Primary Care Provider and Physicist Nuclear Call non-emergency contact if: you have any medication questions and your symptoms worsen Follow-up/Referrals: Cari Page MD [Primary Care Provider] - Diet: Heart Healthy Addtl Attending Provider Instructions: Mrs Lema You came to the hospital for right sided visual deficits. You were extensively evaluated. You were also evaluated by the Neurologist. You had CT scans and MRI brain which did not show any acute stroke. You were started on clopidogrel in addition to your aspirin. Please take both clopidogrel and aspirin for 3 weeks after which you stop the aspirin and continue clopidogrel. You were also started on rosuvastatin. Please monitor for side effects and follow up with your Primary Doctor as we discussed. Please ensure follow up with your Primary Doctor and Physicist Nuclear within 1 week. It was a pleasure taking care of you. Pending Studies at Discharge: No Stand-Alone Forms: [facility] Outbox, Smoking Cessation Medications and DC Order Prescriptions: New clopidogrel 75 mg Tablet 75 mg PO QAM Qty: 30 0RF rosuvastatin 5 mg tablet 5 mg PO DAILY Qty: 30 0RF Continued multivitamin Tablet 1 tab PO DAILY phenytoin sodium extended [Dilantin Extended] 100 mg Capsule 300 mg PO Q OTHER DAY Rx Instructions: Alternates 300mg and 200mg at HS levothyroxine 88 mcg tablet 88 mcg PO QAM Caltrate 600 plus D 600 mg (1,500 mg)-800 unit Tablet,Chewable 1 tab PO DAILY phenytoin sodium extended 100 mg capsule 200 mg PO Q OTHER DAY Rx Instructions: Alternates 300mg and 200mg at HS potassium chloride 10 mEq Capsule, Extended Release 10 meq PO BID amlodipine 5 mg Tablet 5 mg PO QAM carvedilol 3.125 mg Tablet 3.125 mg PO BID hydrochlorothiazide 25 mg Tablet 25 mg PO QAM losartan 50 mg tablet 50 mg PO QAM aspirin [Lo Low Dose Aspirin] 81 mg Tablet,Delayed Release (Dr/Ec) 81 mg PO QPM 21 Days Qty: 0 0RF Patient Comments: TAKES DAILY AT NOON Discharge Orders: Discharge Order (Routine); Ordered 08/17/22 Ordered By: Shanae Garcia Admission Data Admit Date/Time: 08/16/22 20:13 Attending Provider: Shanae Garcia I. Admit Provider: Jessica Fall Primary Care Provider: Cari Page Other Providers: Jessica Fall ; Hipolito Suresh Other Interventions: Discharge Summary Assessment (RN) Last Done: 08/17/22 13:24
[2022-08-17] MEDS ORDERED: PHENYTOIN SODIUM ER 100 MG CAP PO SCH (21:00)
--- NOTE | 2022-08-18 06:37 | Electrocardiogram Report ---
Test Reason : Blood Pressure : / mmHG Vent. Rate : 094 BPM Atrial Rate : 094 BPM P-R Int : 150 ms QRS Dur : 078 ms QT Int : 336 ms P-R-T Axes : 059 033 052 degrees QTc Int : 420 ms Normal sinus rhythm Nonspecific ST abnormality Abnormal ECG When compared with ECG of 27-MAY-2020 17:07, Premature atrial complexes are no longer Present Confirmed by Nathaniel Portillo ([id number]) on 08/18/2022 6:36:43 AM Referred By: Provider Outside Confirmed By:Nathaniel Portillo
== END 2022-08-17 14:00 | disposition home or self-care (01) ==
LOC: ED 14:50 → 2N 14:50 → SUATTDRO 20:13 → 2N 22:38